=== PATIENT | female | born 1970 | race Caucasian/White ===

== ENCOUNTER → 2018-06-14 13:18 | Outpatient (CLI) | payer OTHER, SELFPAY ==
[2018-06-14 15:48] LABS: Free T3 1.6 pg/mL (2.18-3.98); T4 Free Direct 1.23 ng/dL (0.76-1.46); Thyroid Stim Hormone (TSH) 2.24 uIU/mL (0.358-3.74)
== END ==
PROVIDERS: Visit Provider Family Medicine
DX: E03.9 Hypothyroidism, unspecified (principal)
CPT/HCPCS: 36415; 84439; 84443; 84481

== ENCOUNTER → 2018-06-27 12:58 | Outpatient (CLI) | payer OTHER, SELFPAY ==
--- NOTE | 2018-06-27 13:04 | ECHOD_ITS ---
Reason For Study: Palpitations Procedure This was a 2D Doppler, Color Flow transthoracic echocardiogram. Exam performed in department. Left Ventricle Normal left ventricle. The estimated ejection fraction is 55 %. Normal diastology for age. No regional wall motion abnormalities noted. Right Ventricle Normal RV size. Normal systolic function. Atria Normal left atrium. Normal right atrium. Mitral Valve Normal mitral valve. Tricuspid Valve Normal tricuspid valve. Aortic Valve Normal aortic valve. Pulmonic Valve Normal pulmonic valve. Great Vessels Normal aortic root. The pulmonary artery is normal size. Normal inferior vena cava. Pericardium/Pleural No pericardial effusion. MMode/2D Measurements & Calculations LVIDd: 4.2 cm IVSd: 0.74 cm LVOT diam: 2.0 cm LVIDs: 2.2 cm LVPWd: 0.75 cm LVOT area: 3.2 cm2 RVDd: 3.4 cm FS: 47.7 % Ao root diam: 3.0 cm LAV(MOD-bp): 42.4 ml LA A4 area: 15.8 cm2 LA dimension: 3.0 cm LAV(MOD-bp) Indexed: 22.7 ml/m2 LAV(MOD-sp2): 45.0 ml LAV(MOD-sp4): 40.3 ml RA A4 area: 12.8 cm2 Time Measurements MV dec time: 0.17 sec Doppler Measurements & Calculations MV E max john: 100.8 cm/sec Lat Peak E' John: 13.9 cm/sec Med Peak E' John: 14.5 cm/sec MV A max john: 75.0 cm/sec E/E' lat: 7.3 E/E' med: 6.9 MV E/A: 1.3 MV V2 max: 119.4 cm/sec MV P1/2t max john: 120.4 cm/sec Ao V2 max: 183.0 cm/sec MV max P.7 mmHg MV P1/2t: 74.8 msec Ao max P.4 mmHg MV V2 mean: 61.2 cm/sec MV dec slope: 471.1 cm/sec2 Ao V2 mean: 105.3 cm/sec MV mean P.8 mmHg MVA(P1/2t): 2.9 cm2 Ao mean P.7 mmHg MV V2 VTI: 28.0 cm Ao V2 VTI: 33.6 cm MVA(VTI): 3.5 cm2 STEPHY(I,D): 2.9 cm2 STEPHY(V,D): 2.6 cm2 LV V1 max: 147.9 cm/sec SV(LVOT): 98.5 ml PA V2 max: 107.9 cm/sec LV V1 max P.7 mmHg LV V1 mean P.8 mmHg LV V1 mean: 88.1 cm/sec LV V1 VTI: 31.2 cm Interpretation Summary Normal left ventricle. The estimated ejection fraction is 55 %. Normal diastology for age. Structurally normal valves. Ordering Physician: Nitza Levy Referring Physician: Nitza Levy Performed By: Ned Ashby RCS
== END ==
PROVIDERS: Family Provider Family Medicine; PCP Family Medicine; Visit Provider Family Medicine
DX: I37.0 Nonrheumatic pulmonary valve stenosis (principal)
CPT/HCPCS: 93306

== ENCOUNTER 2018-07-21 07:52 | Day surgery (SDC) | payer OTHER, SELFPAY ==
[2018-07-21 08:06] VITALS: BP 121/101; PULSE 84; RESP 16; O2SAT 98
== END 2018-07-21 08:25 | disposition home or self-care (01) ==
LOC: EN 07:52
PROVIDERS: Family Provider Family Medicine; PCP Family Medicine; Referring Provider Surgery; Visit Provider Surgery
PROC: F00ZJWZ Instrumental Swallowing and Oral Function Assessment using Swallowing Equipment (ICD-10-PCS; CPT 43235; principal; 2018-07-21 07:55)
DX: Z53.9 Procedure and treatment not carried out, unspecified reason (principal)

== ENCOUNTER → 2018-09-30 11:31 | Outpatient (CLI) | payer OTHER, SELFPAY ==
[2018-06-27 08:59] VITALS: BMI 27.4
[2018-10-06 14:18] LABS: HPV Reflexed? NOT INDICATED
== END ==
PROVIDERS: Family Provider Family Medicine; PCP Family Medicine; Referring Provider Obstetrics & Gynecology; Visit Provider Obstetrics & Gynecology
DX: Z12.4 Encounter for screening for malignant neoplasm of cervix (principal)
CPT/HCPCS: 88175; G0145

== ENCOUNTER → 2018-10-06 10:05 | Outpatient (CLI) | payer OTHER, SELFPAY ==
[2018-06-27 08:59] VITALS: BMI 27.4
[2018-10-06 11:19] LABS: Hemoglobin A1c 5.1 % (4.2-6.3)
[2018-10-06 11:21] LABS: Estradiol < 11.0 pg/mL; Follicle Stimulating Hormone 76.4 mIU/mL; T4 Free Direct 1.07 ng/dL (0.76-1.46); T4 Total, Thyroxin 8.5 ug/dL (4.8-13.9); Thyroid Stim Hormone (TSH) 2.62 uIU/mL (0.358-3.74)
[2018-10-06 12:11] LABS: Progesterone Level 0.14 ng/mL (See Comment)
[2018-10-07 11:03] LABS: DHEA Sulfate 46.2 ug/dL (41.2-243.7)
== END ==
PROVIDERS: Family Provider Family Medicine; PCP Family Medicine; Referring Provider Obstetrics & Gynecology; Visit Provider Obstetrics & Gynecology
DX: Z78.0 Asymptomatic menopausal state (principal)
CPT/HCPCS: 36415; 82533; 82627; 82670; 83001; 83036; 84144; 84403; 84436; 84439; 84443; 82626

== ENCOUNTER → 2018-11-21 07:26 | Outpatient (CLI) | payer OTHER, SELFPAY ==
--- NOTE | 2018-11-21 07:29 | BI_ITS ---
MAMMOGRAPHY - BILATERAL SCREENING REASON FOR EXAM: Female, 48 years old. Routine annual screening examination. PERTINENT HISTORY: Mother with breast cancer. TECHNIQUE: Digital bilateral breast rubén (3D mammographic acquisition) in the CC and MLO projections. 2-D mediolateral oblique (MLO) and craniocaudad (CC) views of both breasts were obtained. CAD: Full Field Digital Mammography with Computer Added Detection was performed. COMPARISON: Comparison is made with prior outside examination dated June 01, 2017. FINDINGS: Breast Composition: The breasts are heterogeneously dense, which may obscure small masses. There are no dominant masses or suspicious calcifications. No other significant abnormalities are identified. There has been no significant change since the prior study. BI/SCREENING MAMM (CAD), BILAT IMPRESSION: Stable bilateral screening mammogram. Yearly follow-up mammogram recommended. (A) ASSESSMENT CATEGORY: BIRADS Category 1: Negative. A letter regarding these results will be sent to the patient by the facility within 30 days. Approximately 10% of breast cancers are not detected by mammography. A normal mammogram should not delay biopsy of a clinically suspicious abnormality. [id number] Electronically Signed: Ok Stevenson MD at 10:44 EST , Service support ,
== END ==
PROVIDERS: Family Provider Family Medicine; PCP Family Medicine; Referring Provider Obstetrics & Gynecology; Visit Provider Obstetrics & Gynecology
DX: Z12.31 Encounter for screening mammogram for malignant neoplasm of breast (principal)
CPT/HCPCS: 77063; 77067

== ENCOUNTER → 2018-12-07 09:31 | Outpatient (CLI) | payer OTHER, SELFPAY ==
--- NOTE | 2018-12-07 09:37 | MRI_ITS ---
STUDY: BILATERAL BREAST MR WITHOUT AND WITH CONTRAST REASON FOR EXAM: Female, 48 years old. Family history of breast cancer in mother. Patient is currently taking progesterone. However, referring physician did not want to delay imaging. Dense breasts. TECHNIQUE: Multi-sequence multi-echo imaging of both breasts was performed with a dedicated breast coil. T1-weighted and T2-weighted images were performed before the administration of contrast. T1-weighted images were also performed after the administration of 7 cc of Gadavist intravenously without complications. COMPARISON: Mammograms dated November 21, 2018 and December 30, 2016. FINDINGS: RIGHT BREAST: The breast tissue is heterogeneously dense with minimal background enhancement. There are no abnormal enhancing masses or areas of non-mass enhancement in the right breast. LEFT BREAST: The breast tissue is heterogeneously dense with minimal background enhancement. There are no abnormal enhancing masses or areas of non-mass enhancement in the left breast. There are no enlarged or abnormal lymph nodes. There is no abnormality in the visualized regions of the chest or liver. MRI/Breast Bilateral W/O and W IMPRESSION: No abnormality on the breast MRI with contrast. Yearly screening mammograms recommended. CATEGORY: BIRADS Category 2: Benign. A letter regarding these results will be sent to the patient by the facility within 30 days. Electronically Signed: Michael Tee MD at 13:55 EST , Service support ,
== END ==
PROVIDERS: Family Provider Family Medicine; PCP Family Medicine; Referring Provider Obstetrics & Gynecology; Visit Provider Obstetrics & Gynecology
DX: R92.8 Other abnormal and inconclusive findings on diagnostic imaging of breast (principal); R92.2 Inconclusive mammogram; Z80.3 Family history of malignant neoplasm of breast
CPT/HCPCS: 77049; A9585; A4216; C8908

== ENCOUNTER → 2019-02-10 13:52 | Outpatient (CLI) | payer OTHER, SELFPAY ==
[2018-06-27 08:59] VITALS: BMI 27.4
[2019-02-10 16:12] LABS: Estradiol 12.7 pg/mL
[2019-02-10 16:17] LABS: Progesterone Level 3.91 ng/mL (See Comment)
== END ==
PROVIDERS: Visit Provider Obstetrics & Gynecology
DX: Z78.0 Asymptomatic menopausal state (principal)
CPT/HCPCS: 36415; 82670; 84144

== ENCOUNTER → 2019-11-17 11:49 | Outpatient (CLI) | payer OTHER, SELFPAY ==
[2019-11-17 15:56] LABS: Absolute Lymphocyte Count 1.65 X10^3/uL (0.83-4.51); Absolute Neutrophil Count 4.9 X10^3/uL (2.0-7.7); Basophil# 0.05 X10^3/uL; Basophil% 0.7 % (0-1); Eosinophil# 0.17 X10^3/uL; Eosinophils% 2.3 % (0-5); Hematocrit 43.6 % (37-47); Hemoglobin 13.9 g/dL (12.0-15.0); Lymphocyte # 1.65 X10^3/ul (4.0); Lymphocyte % 22.2 % (19-41); Mean Corp Hgb Conc 31.9 g/dL (32-36); Mean Corpuscular Hgb 30.2 pg (27.0-32.0); Mean Corpuscular Volume 94.8 fL (81-99); Mean Platelet Vol. 9.6 fl (6.2-12.0); Monocyte# 0.63 X10^3/uL; Monocyte% 8.5 % (0-10); NRBC Flagged by Analyzer 0 % (0-5); Neutrophil # 4.91 X10^3/uL (2.7-7.7); Platelet Count 388 K/mm3 (150-450); RBC Distribution Width CV 13.4 % (11.6-14.6); White Blood Count 7.4 K/mm3 (4.4-11.0)
[2019-11-17 16:15] LABS: T4 Free Direct 1.06 ng/dL (0.76-1.46); Thyroid Stim Hormone (TSH) 1.75 uIU/mL (0.358-3.74)
== END ==
PROVIDERS: PCP Family Medicine; Visit Provider Family Medicine
DX: E03.9 Hypothyroidism, unspecified (principal); R00.2 Palpitations
CPT/HCPCS: 36415; 84439; 84443; 85025

== ENCOUNTER → 2019-11-30 08:48 | Outpatient (CLI) | payer OTHER, SELFPAY | PROVIDERS: PCP Family Medicine; Referring Provider Family Medicine; Visit Provider Family Medicine | DX: R00.2 Palpitations (principal) | CPT/HCPCS: 93225; 93226 ==

== ENCOUNTER → 2020-09-23 07:21 | Outpatient (CLI) | payer OTHER, SELFPAY ==
--- NOTE | 2020-09-23 07:22 | BI_ITS ---
MAMMOGRAPHY - BILATERAL SCREENING REASON FOR EXAM: Female, 50 years old. Routine annual screening examination. PERTINENT HISTORY: Mother with breast cancer. TECHNIQUE: Digital bilateral breast gab (3D mammographic acquisition) in the CC and MLO projections. 2-D mediolateral oblique (MLO) and craniocaudad (CC) views of both breasts were obtained. CAD: Full Field Digital Mammography with Computer Added Detection was performed. COMPARISON: Comparison is made with prior examination dated 11/21/2018 and prior MRI examination dated 07/07/2019. FINDINGS: Breast Composition: The breasts are heterogeneously dense, which may obscure small masses. There are no dominant masses or suspicious calcifications. No other significant abnormalities are identified. There has been no significant change since the prior study. BI/SCREEN MAMM (CAD) W/GAB BILAT IMPRESSION: Stable bilateral screening mammogram. Yearly follow-up mammogram recommended. (A) ASSESSMENT CATEGORY: BIRADS Category 1: Negative. A letter regarding these results will be sent to the patient by the facility within 30 days. Approximately 10% of breast cancers are not detected by mammography. A normal mammogram should not delay biopsy of a clinically suspicious abnormality. [id number] Electronically Signed: Ok Stevenson, at 10:11 EST , Service support ,
== END ==
PROVIDERS: PCP Family Medicine; Referring Provider Student in an Organized Health Care Education/Training Program; Visit Provider Student in an Organized Health Care Education/Training Program
DX: Z12.31 Encounter for screening mammogram for malignant neoplasm of breast (principal)
CPT/HCPCS: 77063; 77067

== ENCOUNTER → 2021-03-19 07:18 | Outpatient (CLI) | payer BC, SELFPAY ==
[2018-06-27 08:59] VITALS: BMI 27.4
[2021-03-19 08:09] LABS: Absolute Lymphocyte Count 1.83 X10^3/uL (0.83-4.51); Absolute Neutrophil Count 3.7 X10^3/uL (2.0-7.7); Basophil# 0.03 X10^3/uL; Basophil% 0.5 % (0-1); Eosinophil# 0.18 X10^3/uL; Eosinophils% 2.9 % (0-5); Hematocrit 40.4 % (37-47); Hemoglobin 13.3 g/dL (12.0-15.0); Lymphocyte # 1.83 X10^3/ul (0.83-4.51); Mean Corp Hgb Conc 32.9 g/dL (32-36); Mean Corpuscular Hgb 30.6 pg (27.0-32.0); Mean Corpuscular Volume 92.9 fL (81-99); Mean Platelet Vol. 9.3 fl (6.2-12.0); Monocyte# 0.51 X10^3/uL; Monocyte% 8.1 % (0-10); NRBC Flagged by Analyzer 0 % (0-5); Neutrophil # 3.73 X10^3/uL (2.7-7.7); Neutrophil % 59.2 % (47-70); Platelet Count 353 K/mm3 (150-450); RBC Distribution Width CV 13.6 % (11.6-14.6); RBC Distribution Width SD 46.4 fl (35.1-43.9); Red Blood Count 4.35 M/mm3 (4.2-5.4); White Blood Count 6.3 K/mm3 (4.4-11.0)
[2021-03-19 08:38] LABS: Anion Gap 5 (5-15); BUN 13 mg/dL (7-18); BUN/Creat Ratio 12.5 RATIO (10-20); Chloride 106 mmol/L (98-107); Cholesterol 273 mg/dL (200); Creatinine, Serum 1.04 mg/dL (0.55-1.02); EST Glomerular Filtration Rate 59 mL/min (>60); Est Glom Filt Rate - Afr Amer 72 mL/min (>60); Glucose 90 mg/dL (74-106); High Density Lipoprotein 56 mg/dL; Potassium 3.9 mmol/L (3.5-5.1); Sodium Level 140 mmol/L (136-145); T4 Free Direct 1.43 ng/dL (0.76-1.46); Thyroid Stim Hormone (TSH) 1.86 uIU/mL (0.358-3.74); Triglycerides 124 mg/dL; Very Low Density Lipoprotein 25 mg/dL (5-40)
== END ==
PROVIDERS: PCP Family Medicine; Referring Provider Family Medicine; Visit Provider Family Medicine
DX: Z00.00 Encounter for general adult medical examination without abnormal findings (principal); U07.1 COVID-19; E03.9 Hypothyroidism, unspecified; K21.9 Gastro-esophageal reflux disease without esophagitis
CPT/HCPCS: 36415; 80048; 80061; 84439; 84443; 85025; 86769

== ENCOUNTER → 2022-02-03 | Outpatient (CLI) | payer BC, SELFPAY ==
[2022-02-10 15:30] LABS: HPV APTIMA, High Risk Negative (Negative)
== END | disposition home or self-care (01) ==
LOC: LABSPEC 16:14
PROVIDERS: PCP Family Medicine; Visit Provider Student in an Organized Health Care Education/Training Program
DX: Z12.4 Encounter for screening for malignant neoplasm of cervix (principal)
CPT/HCPCS: 87624; 88175; G0145

== ENCOUNTER → 2022-02-16 | Outpatient (CLI) | payer BC, SELFPAY ==
--- NOTE | 2022-02-16 07:16 | BI_ITS ---
MAMMOGRAPHY - BILATERAL SCREENING REASON FOR EXAM: Female, 51 years old. Routine annual screening examination. PERTINENT HISTORY: Mother with breast cancer. TECHNIQUE: Digital bilateral breast gab (3D mammographic acquisition) in the CC and MLO projections. 2-D mediolateral oblique (MLO) and craniocaudad (CC) views of both breasts were obtained. CAD: Full Field Digital Mammography with Computer Added Detection was performed. COMPARISON: Comparison is made with prior study dated 09/23/2020 and 11/21/2018. FINDINGS: Breast Composition: The breasts are heterogeneously dense, which may obscure small masses. There are no dominant masses or suspicious calcifications. No other significant abnormalities are identified. There has been no significant change since the prior study. BI/SCRN MAMM (CAD)W/GAB BILAT IMPRESSION: Stable bilateral screening mammogram. Yearly follow-up mammogram recommended. (A) ASSESSMENT CATEGORY: BIRADS Category 1: Negative. A letter regarding these results will be sent to the patient by the facility within 30 days. Approximately 10% of breast cancers are not detected by mammography. A normal mammogram should not delay biopsy of a clinically suspicious abnormality. [id number] Electronically Signed: Ok Stevenson MD at 8:38 EDT ,
== END | disposition home or self-care (01) ==
LOC: OPBI 07:14
PROVIDERS: PCP Family Medicine; Referring Provider Student in an Organized Health Care Education/Training Program; Visit Provider Student in an Organized Health Care Education/Training Program
DX: Z12.31 Encounter for screening mammogram for malignant neoplasm of breast (principal); Z80.3 Family history of malignant neoplasm of breast
CPT/HCPCS: 77063; 77067

== ENCOUNTER → 2022-08-31 | Outpatient (CLI) | payer BC, SELFPAY ==
[2022-08-31 08:47] LABS: Absolute Lymphocyte Count 1.68 X10^3/uL (0.83-4.51); Absolute Neutrophil Count 3.5 X10^3/uL (2.0-7.7); Basophil# 0.03 X10^3/uL; Basophil% 0.5 % (0-1); Eosinophil# 0.16 X10^3/uL; Eosinophils% 2.7 % (0-5); Hemoglobin 13.2 g/dL (12.0-15.0); Lymphocyte # 1.68 X10^3/ul (0.83-4.51); Lymphocyte % 28.4 % (19-41); Mean Corpuscular Hgb 31.1 pg (27.0-32.0); Mean Corpuscular Volume 94.1 fL (81-99); Mean Platelet Vol. 9.6 fl (6.2-12.0); Monocyte# 0.59 X10^3/uL; NRBC Flagged by Analyzer 0 % (0-5); Neutrophil # 3.45 X10^3/uL (2.7-7.7); Neutrophil % 58.2 % (47-70); Platelet Count 389 K/mm3 (150-450); RBC Distribution Width CV 13.5 % (11.6-14.6); RBC Distribution Width SD 46.5 fl (35.1-43.9); Red Blood Count 4.25 M/mm3 (4.2-5.4); White Blood Count 5.9 K/mm3 (4.4-11.0)
[2022-08-31 09:30] LABS: ALB/GLOB Ratio 0.9 RATIO (0.9-2.4); AST(SGOT) 18 U/L (15-37); Alanine Aminotransfer ALT/SGPT 31 U/L (13-56); Albumin, Serum 3.5 g/dL (3.2-5.0); Alkaline Phosphatase 81 U/L (45-117); Anion Gap 6 (5-15); BUN 14 mg/dL (7-18); BUN/Creat Ratio 14.4 RATIO (10-20); Calcium,Total 8.7 mg/dL (8.5-10.1); Chloride 105 mmol/L (98-107); Cholesterol 234 mg/dL (200); Creatinine, Serum 0.97 mg/dL (0.55-1.02); EST Glomerular Filtration Rate 64 mL/min (>60); Est Glom Filt Rate - Afr Amer 77 mL/min (>60); Globulin 3.8 g/dL (2.2-4.2); Glucose 84 mg/dL (74-106); High Density Lipoprotein 42 mg/dL; Potassium 4.3 mmol/L (3.5-5.1); Protein, Total 7.3 g/dL (6.4-8.2); Sodium Level 140 mmol/L (136-145); T4 Free Direct 1.63 ng/dL (0.76-1.46); Triglycerides 92 mg/dL; Very Low Density Lipoprotein 18 mg/dL (5-40)
== END | disposition home or self-care (01) ==
LOC: LAB 07:29
PROVIDERS: PCP Family Medicine; Referring Provider Family Medicine; Visit Provider Family Medicine
DX: Z00.00 Encounter for general adult medical examination without abnormal findings (principal); E03.9 Hypothyroidism, unspecified; K21.9 Gastro-esophageal reflux disease without esophagitis; E78.5 Hyperlipidemia, unspecified
CPT/HCPCS: 36415; 80053; 80061; 84439; 84443; 85025

== ENCOUNTER → 2022-09-18 | Outpatient (CLI) | payer BC, SELFPAY ==
--- NOTE | 2022-09-18 07:26 | RAD_ITS ---
STUDY: X-RAY - ESOPHAGUS (BARIUM SWALLOW) WITH FLUOROSCOPY REASON FOR EXAM: Female, 52 years old. GERD TECHNIQUE: 19 view(s) of the esophagus were obtained following swallowing of barium. FLUOROSCOPY TIME (if supplied): (40 seconds) minutes/seconds COMPARISON: Comparison is made with prior study 05/03/2017. FINDINGS: There is no demonstrated esophageal foreign body. There is no demonstrated stricture or mucosal abnormality. Normal gastroesophageal junction, without a demonstrated hiatal hernia. The patient ingested a 12 mm tablet of barium without any difficulty. Normal visualized aortic arch and descending thoracic aorta. Normal visualized pulmonary parenchyma. Normal visualized osseous structures of the thorax. RAD/Esophagus Single Contrast IMPRESSION: Normal plain film x-ray examination (barium swallow) of the esophagus. Electronically Signed: Ok Stevenson MD at 13:06 [facility] ,
[2022-09-23 14:08] LABS: Beef <0.10 kU/L (Class 0); Chicken <0.10 kU/L (Class 0); Clam <0.10 kU/L (Class 0); Codfish <0.10 kU/L (Class 0); Corn 0.12 kU/L (Class 0/I); Egg, White 0.71 kU/L (Class II); Egg, Yolk 0.26 kU/L (Class 0/I); Gluten <0.10 kU/L (Class 0); Milk (Cow) <0.10 kU/L (Class 0); Peanut <0.10 kU/L (Class 0); SCALLOP <0.10 kU/L (Class 0); SESAME SEED <0.10 kU/L (Class 0); Shrimp <0.10 kU/L (Class 0); Soybean <0.10 kU/L (Class 0); Walnut, (Food) <0.10 kU/L (Class 0); Wheat 0.12 kU/L (Class 0/I)
[2022-09-24 10:31] LABS: Banana 0.11 kU/L (Class 0/I)
== END | disposition home or self-care (01) ==
LOC: RAD 07:19
PROVIDERS: PCP Family Medicine; Visit Provider Otolaryngology
DX: K21.00 Gastro-esophageal reflux disease with esophagitis, without bleeding (principal); T78.40XA Allergy, unspecified, initial encounter
CPT/HCPCS: 36415; 74220; 86003

== ENCOUNTER → 2023-12-08 | Outpatient (CLI) | payer BC, SELFPAY ==
--- OUTSIDE RECORDS SUMMARY | 2023-12-08 07:09 | XMS RPT_ITS | CCD ---
Author Name Unknown Address [address] [place] [address] Organization [facility] Care Team Providers Care Senior Behavioral Scientist Name Role Phone FAVIOLA KNUTSON Unavailable Unavailable PHYSICIAN, NONE Unavailable Unavailable FAVIOLA KNUTSON Unavailable Unavailable PHYSICIAN, NONE Unavailable Unavailable FAVOILA KNUTSON Unavailable Unavailable PHYSICIAN, NONE Unavailable Unavailable BEN FERNANDES Primary Care Unavailable BEATA ALVAREZ Attending Unavailable Allergies Allergy Classification Reported Allergen(s) Allergy Type Date of Onset Reaction(s) Facility (1 source) Latex; Translations: [LATEX] Propensity to adverse reactions to drug (disorder) 9 [facility] Repository (1 source) AMOXICILLIN-POT CLAVULANATE; Translations: [AMOXICILLIN-POT CLAVULANATE] Propensity to adverse reactions to drug (disorder) 9 [facility] Repository Problems Problem Classification Problem Date Documented Da te Episodic/Chronic Open wounds of extremities (1 source) Unspecified open wound of right thumb without damage to nail, initial encounter; Translations: [Avulsion of skin of right thumb, initial encounter] Onset: 05-08-2023 Episodic Results Test Name Value Interpretation Reference Range Facil ity Encounters Encounter Date Encounter Type Care Provider Facility Start: 05-08-2023 End: 05-08-2023 Emergency department patient visit BEN FERNANDES Facility:[facility] Start: 01-14-2018 End: 01-15-2018 Ambulatory FAVIOLA KNUTSON Facility:[facility] Start: 09-20-2017 End: 09-21-2017 Ambulatory FAVIOLA KNUTSON Facility:[facility] Start: 2017 End: 06-17-2017 Ambulatory FAVIOLA KNUTSON Facility:[facility] Payers Date Payer Category Payer Unknown [id number] 2017 Private Health Insurance [id number] Summary Purpose Family History No Family History Records FoundNo Family History Records Found Advance Directives No Advanced Directives Records FoundNo Advanced Directives Records Found Additional Source Comments INFORMATION SOURCE (unrecogn ized section and content) DATE CREATED AUTHOR AUTHOR'S RENNYBUFFY ATMOMO 05/08/2023 [facility] FOR RECORDS PERTAINING TO PATIENTS WHO ARE OR HAVE BEEN ENROLLED IN A CHEMICAL DEPENDENCY/SUBSTANCEABUSE PROGRAM, SOME INFORMATION MAY BE OMITTED. This clinical summary was aggregated from multiple sources. Caution should be exercised in using it in the provision of clinical care. This summary normalizes information from multiple sources, and as a consequence, information in this document may materially change the coding, format and clinical context of patient data. In addition, data may be omitted in some cases. CLINICAL DECISIONS SHOULD BE BASED ON THE PRIMARY CLINICAL RECORDS. [facility]. provides no warranty or guarantee of the accuracy or completeness of information in this document.
--- NOTE | 2023-12-08 07:10 | BI_ITS ---
MAMMOGRAPHY - BILATERAL SCREENING REASON FOR EXAM: Female, 53 years old. Routine annual screening examination. PERTINENT HISTORY: Mother with breast cancer. TECHNIQUE: Digital bilateral breast gab (3D mammographic acquisition) in the CC and MLO projections. 2-D mediolateral oblique (MLO) and craniocaudad (CC) views of both breasts were obtained. CAD: Full Field Digital Mammography with Computer Added Detection was performed. COMPARISON: Comparison is made with prior study dated February 16, 2022. FINDINGS: Breast Composition: The breasts are heterogeneously dense, which may obscure small masses. There are no dominant masses or suspicious calcifications. No other significant abnormalities are identified. There has been no significant change since the prior study. BI/SCRN MAMM (CAD)W/GAB BILAT IMPRESSION: Stable bilateral screening mammogram. Yearly follow-up mammogram recommended. (A) ASSESSMENT CATEGORY: BIRADS Category 1: Negative. A letter regarding these results will be sent to the patient by the facility within 30 days. Approximately 10% of breast cancers are not detected by mammography. A normal mammogram should not delay biopsy of a clinically suspicious abnormality. [id number] Electronically Signed: Ok Stevenson MD at 12:12 EST ,
== END | disposition home or self-care (01) ==
LOC: OPBI 07:06
PROVIDERS: PCP Family Medicine; Referring Provider Family Medicine; Visit Provider Family Medicine
DX: Z12.31 Encounter for screening mammogram for malignant neoplasm of breast (principal); Z85.3 Personal history of malignant neoplasm of breast
CPT/HCPCS: 77063; 77067

== ENCOUNTER 2023-12-30 07:25 | Day surgery (SDC) | payer BC, SELFPAY ==
[2023-12-30] MEDS: Lactated Ringers 1,000 ML 15 ML IV (07:46)
[2023-12-30 07:47] VITALS: BP 107/66; PULSE 82; RESP 18; TEMP 36.6; O2SAT 100; BMI 23.8
--- NOTE | 2023-12-30 08:59 | PCM.HP.STD ---
[facility] - General General Date of Admission: 12/30/23 Date of Service: 12/30/23 Chief Complaint: Screening colonoscopy [facility] Narrative RAE DAS, is a 53 F who presents today for screening colonoscopy. She had a colonoscopy back in 2011 but that was normal. She does not have any problems with her bowels. She does not have any chest pain shortness of breath. She did not have any weaknes, nausea vomiting or diarrhea. Overall she is in very good health. [facility] Medical History Alcohol use Asthma Depression GERD (gastroesophageal reflux disease) Heart murmur History of asthma History of esophageal dilatation History of irregular heartbeat Hypothyroidism Non-smoker Thyroid disease Wears glasses Home Medications levothyroxine 100 mcg tablet (Synthroid) 100 mcg PO DAILY 06/27/18 [History Last Taken 12/30/23] omeprazole 20 mg tablet,delayed release 20 mg PO DAILY #60 tabs 06/27/18 [Rx Last Taken 12/30/23] fluticasone propionate 50 mcg/actuation nasal spray,suspension 2 spray intranasal DAILY PRN allergy symptoms 12/08/23 [History Last Taken Unknown] vitamin C 30 mg-zinc citrate 1.1 mg-elderberry 25 mg chewable tablet (Sambucus Elderberry) 1 tab PO .QD 12/08/23 [History Last Taken Unknown] Allergy/AdvReac Type Severity Reaction Status Date / Time amoxicillin Allergy Mild rash Verified 12/30/23 07:45 latex Allergy Mild rash Verified 12/30/23 07:45 Family History (Updated 06/27/18 @ 08:59 by Macey Collier) Father Hypertension Asthma Mother Breast cancer Surgical History History of colonoscopy (~2011) History of esophagogastroduodenoscopy (EGD) History of nasal septoplasty Social History (Updated 12/08/23 @ 10:53 by Kaylee Tanner) current occupational status: employed Smoking Status: Never smoker substance use type: does not use ROS Review of Systems ROS Unobtainable: other Constitutional Constitutional: Denies fatigue, fever(s), poor appetite, weight gain or weight loss ENT HEENT: Denies mouth lesions Cardiovascular Cardiovascular: Denies abdominal bloating, abdominal edema or abdominal pain Respiratory/Chest Respiratory/Chest: Denies change in mental status, change in phlegm color, chest congestion or chest tightness Gastrointestinal Gastrointestinal: Denies belching, bloating, change in bowel habits, change in stool character, chewing difficulty, coffee ground emesis, constipation, cramping, diarrhea, dyspepsia, dysphagia, early satiety, excessive flatus, fecal incontinence, heartburn, hematemesis, hematochezia, hemorrhoids, loose stools, melena, nausea, odynophagia, rectal bleeding, tenesmus, vomiting or weight changes Genitourinary Genitourinary: Denies abdominal discomfort, burning urination or itching Musculoskeletal Musculoskeletal: Reports as per HPI; Denies muscle weakness or myalgias Integumentary Integumentary: Denies jaundice Neurologic Neurologic: Denies lack of coordination or weakness Psychiatric Psychiatric: Denies confusion, depression, memory loss, mood swings, paranoia or suicidal ideation Endocrine Endocrinology: Denies systems reviewed and no addt'l complaints, except as documented Hematologic/Lymphatic Hematologic/Lymphatic: Denies anemia, easy bleeding, easy bruising or lymphadenopathy Allergic/Immunologic Allergic/Immunologic: Denies systems reviewed and no addt'l complaints, except as documented Vital Signs Vital Signs Vital Signs: 12/30/23 07:47 12/30/23 07:47 Temperature 97.8 F Temperature Source Temporal Pulse Rate 82 Respiratory Rate 18 Respiratory Pattern Normal Blood Pressure 107/66 Blood Pressure Mean 79 Blood Pressure Source Monitor Blood Pressure Position Semi-Fowlers Blood Pressure Location Right Arm Pulse Ox 100 Oxygen Delivery Method Room Air Weight Weight: 148 lb Body Mass Index (BMI) 23.8 Physical Exam Const alert, oriented x3, no apparent distress, healthy appearing and well nourished General Appearance: cooperative, comfortable, well kempt and well developed Orientation / Consciousness: awake and oriented to person HEENT Head and Scalp: normocephalic and atraumatic Face and Sinus: normal facial exam Mouth: oral and palatal mucosa normal Eyes General Eye: normal appearance of both eyes Neck full ROM Lymph Lymphatic: no lymphadenopathy noted Chest inspection of chest normal Resp normal respiratory effort and no use of accessory muscles Cardio regular rate and regular rhythm GI normal to inspection, nondistended, normoactive bowel sounds, soft to palpation, non-tender, non-distended and no masses Auscultation: normoactive bowel sounds Palpation: soft Percussion: normal to percussion Rectal Exam: visual inspection normal and normal sphincter tone no CVA tenderness Back/Spine no CVA tenderness and normal ROM Extremity normal to inspection Peripheral Pulses: Yes pulses 2+ throughout Skin no rashes or lesions noted General Skin Exam: no breakdown, elasticity normal and turgor normal Neuro oriented x3 Motor Exam: strength 5/5 throughout Psych mental status grossly normal Appearance: grossly normal Attitude: calm Activity / Motor Behavior: appropriate eye contact Speech: normal speech Thought Process: normal thought process Thought Content: normal thought content Attention / Concentration: attention grossly intact Memory / Cognition: memory grossly intact Insight: insight good Judgement: judgement good Assessment & Plan Assessment/Plan (1) Encounter for screening for malignant neoplasm of colon: PLAN: 53-year-old comes in for screening colonoscopy. She was explained alternatives, risk, benefits including not withstanding bleeding, infection, sepsis, perforation, need for emergent surgery and . She will have an ASA of 2.
[2023-12-30 09:23] VITALS: BP 107/66; BP 94/51; PULSE 62; RESP 16; TEMP 36.6; O2SAT 98
--- NOTE | 2023-12-30 09:23 | OP.COLON_ITS ---
Patient Name: Clarita Monsivais Procedure Date: 12/30/2023 8:55 AM Date of : 1970 Age: 53 Procedure: Colonoscopy Indications: Screening for colorectal malignant neoplasm Providers: Jose D Mackey DO Medicines: Monitored Anesthesia Care Patient Profile: This is a 53 year old female. Refer to note in patient chart for documentation of history and physical. Last Colonoscopy: more than 10 years ago. Complications: No immediate complications. Procedure: Pre-Anesthesia Assessment: - Prior to the procedure, a History and Physical was performed, and patient medications and allergies were reviewed. The patient is competent. The risks and benefits of the procedure and the sedation options and risks were discussed with the patient. All questions were answered and informed consent was obtained. Patient identification and proposed procedure were verified by the physician in the pre-procedure area. Mental Status Examination: alert and oriented. Airway Examination: normal oropharyngeal airway and neck mobility. Respiratory Examination: clear to auscultation. CV Examination: normal. Prophylactic Antibiotics: The patient does not require prophylactic antibiotics. Prior Anticoagulants: The patient has taken no anticoagulant or antiplatelet agents. ASA Grade Assessment: II - A patient with mild systemic disease. After reviewing the risks and benefits, the patient was deemed in satisfactory condition to undergo the procedure. The anesthesia plan was to use monitored anesthesia care (MAC). Immediately prior to administration of medications, the patient was re-assessed for adequacy to receive sedatives. The heart rate, respiratory rate, oxygen saturations, blood pressure, adequacy of pulmonary ventilation, and response to care were monitored throughout the procedure. The physical status of the patient was re-assessed after the procedure. After I obtained informed consent, the scope was passed under direct vision. Throughout the procedure, the patient's blood pressure, pulse, and oxygen saturations were monitored continuously. The colonoscope was introduced through the anus and advanced to the cecum, identified by appendiceal orifice and ileocecal valve. The colonoscopy was performed without difficulty. The patient tolerated the procedure well. The quality of the bowel preparation was good. The ileocecal valve, appendiceal orifice, and rectum were photographed. Scope In: 9:07:21 AM Scope Withdrawal Time 0 hours 7 minutes 9 seconds Scope Out: 9:18:31 AM Total Procedure Duration Time 0 hours 11 minutes 10 seconds Findings: The perianal and digital rectal examinations were normal. The entire examined colon appeared normal. Impression: - The entire examined colon is normal. - No specimens collected. Recommendation: - Discharge patient to home. - Resume previous diet. - Continue present medications. - Repeat colonoscopy in 10 years for screening purposes. Procedure Code(s): --- Professional --- G0121, Colorectal cancer screening; colonoscopy on individual not meeting criteria for high risk CPT copyright 2021 [employer]. All rights reserved. The codes documented in this report are preliminary and upon paralegal assistant review may be revised to meet current compliance requirements. Jose D Mackey DO 12/30/2023 9:23:26 AM This report has been signed electronically. Number of Addenda: 0 Note Initiated On: 12/30/2023 8:55 AM
--- NOTE | 2023-12-30 09:23 | OP.CCLET_ITS ---
12/30/2023 Nitza Levy [place] [id number] [address] Re : Colonoscopy procedure for Clarita Yodit Dear Dr. Levy This procedure was performed on December. My impressions and recommendations are as follows: Impressions : - The entire examined colon is normal. - No specimens collected. Recommendations : - Discharge patient to home. - Resume previous diet. - Continue present medications. - Repeat colonoscopy in 10 years for screening purposes. My findings are described in the full procedure note, which is enclosed. If I can be of further assistance, please feel free to contact me at . Sincerely, Jose D Friend, 12/30/2023 9:23:26 AM This report has been signed electronically.
[2023-12-30 09:25] VITALS: BP 107/66; BP 96/64; PULSE 59; RESP 16; O2SAT 98
[2023-12-30 09:30] VITALS: BP 107/66; BP 93/52; PULSE 60; RESP 16; O2SAT 99
[2023-12-30 09:33] VITALS: BP 107/66; BP 95/59; PULSE 58; RESP 16; TEMP 36.2; O2SAT 99
[2023-12-30 09:58] VITALS: BP 107/66
== END 2023-12-30 10:10 | disposition home or self-care (01) ==
LOC: EN 07:26 → AC 07:27
PROVIDERS: PCP Family Medicine; Referring Provider Family Medicine; Visit Provider Internal Medicine Gastroenterology
PROC: 0DJD8ZZ Inspection of Lower Intestinal Tract, Via Natural or Artificial Opening Endoscopic (ICD-10-PCS; CPT 45378; principal; 2023-12-30 08:25)
DX: Z12.11 Encounter for screening for malignant neoplasm of colon (principal); J45.909 Unspecified asthma, uncomplicated; K21.9 Gastro-esophageal reflux disease without esophagitis; E03.9 Hypothyroidism, unspecified; Z79.890 Hormone replacement therapy; Z79.899 Other long term (current) drug therapy
CPT/HCPCS: 45378; J7120; J2405

== ENCOUNTER → 2024-01-03 | Outpatient (CLI) | payer BC, SELFPAY ==
[2024-01-03 08:32] LABS: Absolute Lymphocyte Count 1.95 X10^3/uL (0.83-4.51); Absolute Neutrophil Count 3.8 X10^3/uL (2.0-7.7); Basophil# 0.04 X10^3/uL; Basophil% 0.6 % (0-1); Eosinophil# 0.15 X10^3/uL; Eosinophils% 2.3 % (0-5); Hemoglobin 13.2 g/dL (12.0-15.0); Lymphocyte # 1.95 X10^3/ul (0.83-4.51); Lymphocyte % 29.9 % (19-41); Mean Corp Hgb Conc 32.2 g/dL (32-36); Mean Corpuscular Hgb 30.3 pg (27.0-32.0); Mean Corpuscular Volume 94.3 fL (81-99); Mean Platelet Vol. 9.4 fl (6.2-12.0); Monocyte# 0.57 X10^3/uL; Monocyte% 8.7 % (0-10); NRBC Flagged by Analyzer 0 % (0-5); Neutrophil % 58.3 % (47-70); Platelet Count 337 K/mm3 (150-450); RBC Distribution Width CV 13.4 % (11.6-14.6); RBC Distribution Width SD 46.7 fl (35.1-43.9); Red Blood Count 4.35 M/mm3 (4.2-5.4); White Blood Count 6.5 K/mm3 (4.4-11.0)
[2024-01-03 09:32] LABS: ALB/GLOB Ratio 1.1 RATIO (0.9-2.4); AST(SGOT) 17 U/L (15-37); Alanine Aminotransfer ALT/SGPT 20 U/L (13-56); Albumin, Serum 3.7 g/dL (3.2-5.0); Alkaline Phosphatase 78 U/L (45-117); Anion Gap 4 (5-15); BUN 21 mg/dL (7-18); BUN/Creat Ratio 22.9 RATIO (10-20); Chloride 108 mmol/L (98-107); Cholesterol 264 mg/dL (200); Creatinine, Serum 0.92 mg/dL (0.55-1.02); EST Glomerular Filtration Rate 68 mL/min (>60); Est Glom Filt Rate - Afr Amer 82 mL/min (>60); Globulin 3.5 g/dL (2.2-4.2); Glucose 83 mg/dL (74-106); High Density Lipoprotein 50 mg/dL; Potassium 4.4 mmol/L (3.5-5.1); Protein, Total 7.2 g/dL (6.4-8.2); Sodium Level 141 mmol/L (136-145); T4 Free Direct 1.26 ng/dL (0.76-1.46); Thyroid Stim Hormone (TSH) 1.69 uIU/mL (0.358-3.74); Triglycerides 82 mg/dL; Very Low Density Lipoprotein 16 mg/dL (5-40)
== END | disposition home or self-care (01) ==
LOC: LAB 07:18
PROVIDERS: PCP Family Medicine; Visit Provider Family Medicine
DX: Z00.00 Encounter for general adult medical examination without abnormal findings (principal); E03.9 Hypothyroidism, unspecified; K21.9 Gastro-esophageal reflux disease without esophagitis; E78.5 Hyperlipidemia, unspecified
CPT/HCPCS: 36415; 80053; 80061; 84439; 84443; 85025

== ENCOUNTER → 2024-12-12 | Outpatient (CLI) | payer BC, SELFPAY ==
--- NOTE | 2024-12-12 07:15 | BI_ITS ---
PROCEDURE: SCRN MAMM (CAD)W/GAB BILAT REASON FOR EXAM: F, Age 54 y/o, presents for annual screening mammogram. Family history of breast cancer in her mother at age 77. TECHNIQUE: Bilateral screening digital breast tomosynthesis with 2D and 3D images. Computer aided detection. COMPARISON: 12/08/2023, 02/16/2022. FINDINGS: There are scattered areas of fibroglandular density. No suspicious masses, areas of developing architectural distortion, or suspicious calcifications. BI/SCRN MAMM (CAD)W/GAB BILAT IMPRESSION: There is no mammographic evidence of malignancy. BI-RADS 1: NEGATIVE. RECOMMEND ANNUAL MAMMOGRAPHIC SCREENING. Follow-up code: Routine Follow-up The patient will be notified of the results by letter. Reading Location: [id number]
== END | disposition home or self-care (01) ==
PROVIDERS: PCP Family Medicine; Referring Provider Advanced Practice Midwife; Visit Provider Advanced Practice Midwife
DX: Z12.31 Encounter for screening mammogram for malignant neoplasm of breast (principal)
CPT/HCPCS: 77063; 77067

== ENCOUNTER → 2025-09-04 | Outpatient (CLI) | payer BC, SELFPAY ==
--- OUTSIDE RECORDS SUMMARY | 2025-09-04 07:34 | XMS RPT_ITS | CCD ---
Author Organization [facility] Care Team Providers Care Director Of Psychiatry Name Role Phone FAVIOLA KNUTSON Unavailable Unavailable PHYSICIAN, NONE Unavailable Unavailable FAVIOLA KNUTSON Unavailable Unavailable PHYSICIAN, NONE Unavailable Unavailable FAVIOLA KNUTSON Unavailable Unavailable PHYSICIAN, NONE Unavailable Unavailable NITZA LEVY Primary Care Unavailable RISHABH LILLY Attending Unavailable Dr. Nitza Levy Primary Care Provider Kaylee Tanner Attending Provider Unavailable Dr. Nitza Levy Primary Care Provider Kaylee Tanner Attending Provider Unavailable Dr. Nitza Levy Referring Provider [phone] Friend[facility] Jeffery Attending Provider FriendDr. Jeffery Other Provider Dr. Nitza Levy MD Primary Care Provider Mitra Guan CNM Attending Provider [phone] Mitra Guan CNM Referring Provider [phone] Nitza Levy Primary Care Unavailable Nitza Levy Referring Unavailable Mitra Guan Attending Unavailable Mitra Guan Attending Unavailable Mitra Guan Referring Unavailable Nitza Levy Primary Care Unavailable ADÁN CABELLO Attending Unavailable ADÁN CABELLO Referring Unavailable NITZA LEVY Primary Care Unavailable Nitza Levy MD Primary Care Provider [phone] Allergies Allergy Classification Reported Allergen(s) Allergy Type Date of Onset Reaction(s) Facility (7 sources) Amoxicillin Drug Allergy 8 [facility] (8 sources) Latex; Translations: [LATEX] Allergy to substance 9 rash [facility] Repository (1 source) AMOXICILLIN-POT CLAVULANATE; Translations: [AMOXICILLIN-POT CLAVULANATE] Propensity to adverse reactions to drug (disorder) 9 [facility] Repository (1 source) Amoxicillin Drug Allergy 5 [facility] Rep[facility] (1 source) Latex Drug allergy (disorder) 5 [facility] Rep[facility] Medications Current Medications Medication Drug Class(es) Dates Sig (Normalized) Sig (Original) dihydroxyaluminum sod carb 334 mg chewable tablet (6 sources) Start: 06-27-2018 dihydroxyaluminum sod carb 334 mg chewable tablet Active MG PO June 27, 2018 9:01am Start: 06-27-2018 End: 12-08-2023 dihydroxyaluminum sod carb 3 34 mg chewable tablet Discontinued MG PO June 27, 2018 12:00am December 08, 2023 11:53am Start: 06-27-2018 End: 12-08-2023 dihydroxyaluminum sod carb 3 34 mg chewable tablet Discontinued MG PO June 26, 2018 11:00pm December 08, 2023 10:53am Start: 06-27-2018 dihydroxyalumi num sod carb 334 mg chewable tablet Active MG PO June 26, 2018 11:00pm levothyroxine sodium 0.1 mg oral tablet (7 sources) l-Thyroxine Start: 06-27-2018 take 1 tablet by mouth once daily Levothyroxine (Synthroid) 100 mcg tablet Active 100 ug PO DAILY June 27, 2018 12:00am loratadine 10 mg oral tablet (1 source) Start: 01-20-2024 take 1 tablet by mouth once daily Loratadine (Claritin) 10 mg tablet Active 10 mg PO DAILY January 20, 2024 12:00am omeprazole 20 mg delayed release oral tablet (7 sources) Proton Pump Inhibitor Start: 06-27-2018 take 1 tablet by mouth once daily Omeprazole 20 mg tablet,delayed release (DR/EC) Active 20 mg PO DAILY 60 June 27, 2018 12:00am Vit A-Vit C-P4-Wjdg-Herbal 331 (Talenz) 900 mcg-90 mg- 20 mcg-5.5 mg capsule (1 source) Start: 01-20-2024 Vit A-Vit H-L4-Evmz-Herbal 331 (Talenz) 900 mcg-90 mg- 20 mcg-5.5 mg capsule Active NMA PO January 20, 2024 12:00am Completed/Discontinued Medications Medication Drug Class(es) Dates Sig (Normalized) Sig (Original) Dihydroxyaluminum Sodium Carb 334 mg tablet,chewable (1 source) Start: 06-27-2018 End: 12-08-2023 Dihydroxyaluminum Sodium Carb 334 mg tablet,chewable Discontinued mg PO June 27, 2018 12:00am December 08, 2023 11:53am fluticasone propionate 0.05 mg/actuat metered dose nasal spray (11 sources) Corticosteroid Start: 06-27-2018 End: 01-20-2024 Fluticasone Propionate 50 mcg/actuation spray,suspension Discontinued 2 NMA INTRANASAL DAILY as needed for allergy symptoms December 08, 2023 11:53am January 20, 2024 3:16pm Start: 06-27-2018 End: 12-08-2023 Fluticasone Propionate Activ e 2 SPRAY INTRANASAL DAILY December 08, 2023 11:53am Vit C-Zinc Citrate-Elderberr y (Sambucus Elderberry) 30-1.1-25 mg tablet,chewable (4 sources) Start: 12-08-2023 End: 01-20-2024 Vit C-Zinc Citrate-Elderberr y (Sambucus Elderberry) 30-1.1-25 mg tablet,chewable Discontinued 1 {tbl} PO .QD December 08, 2023 1:00am January 20, 2024 3:17pm Start: 12-08-2023 take 1 tablet by tiffanie th once daily Vit C-Zinc Citrate-Elderberry (Sambucus Elderberry) 30-1.1-25 mg tablet,chewable Active 1 TABLET PO .QD December 08, 2023 1:00am Start: 12-08-2023 take 1 tablet by tiffanie th once daily Vit C-Zinc Citrate-Elderberry (Sambucus Elderberry) 30-1.1-25 mg tablet,chewable Active TABLET PO .QD December 08, 2023 12:00am Problems Problem Classification Problem Date Documented Date Episodic/Chronic Esophageal disorders (1 source) Gastroesophageal reflux disease; Translations: [Gastro-esophageal reflux disease without esophagitis] 01-20-2024 Chronic Menopausal disorders (1 source) Postmenopausal atrophic vaginitis; Translations: [Postmenopausal atrophic vaginitis] Onset: 01-25-2025 Chronic Open wounds of extremities (1 source) Unspecified open wound of right thumb without damage to nail, initial encounter; Translations: [Avulsion of skin of right thumb, initial encounter] Onset: 05-08-2023 Episodic Other lower respiratory disease (2 sources) Dyspnea, unspecified; Translations: [Dyspnea, unspecified] Onset: 06-04-2025 Episodic Other lower respiratory disease (2 sources) Dyspnea; Translations: [Dyspnea, unspecified] 06-04-2025 Episodic Other screening for suspected conditions (not mental disorders or infectious disease) (6 sources) Patient encounter status; Translations: [Encounter for screening for malignant neoplasm of colon] Onset: 12-22-2024 12-08-2023 Episodic Thyroid disorders (1 source) Disorder of thyroid gland; Translations: [Disorder of thyroid, unspecified] 01-20-2024 Episodic Comment on above: ON MED Results Test Name Value Interpretation Reference Range Facility XR Chest 2 Viewson 1. No acute findings. Report Dictated on Electronically Signed By: Alvaro Steen MD Electronically Signed Date/Time: 06/04/2025 8:29 PM EDT [facility] [employer] Patient Name: CLARITA ADKINS CH : 1970 Exam Date/Time: 06/04/2025 08:26 Procedure: XR CHEST 2 VIEWS Ordering Provider: CABELLO SAAD Reason For Exam: r06.00 CHEST PA AND LATERAL CLINICAL INDICATION: r06.00 TECHNIQUE: Frontal and lateral chest x-ray. COMPARISON: None. FINDINGS: Cardiac and mediastinal silhouette within normal limits. Lungs are grossly clear. No significant vascular congestion. No significant pleural effusion or apparent pneumothorax. Bony thorax grossly unremarkable. [facility] [employer] Alvaro Steen MD - 06/04/2025 Patient Name: CLARITA DAS : 1970 Exam Date/Time: 06/04/2025 08:26 Procedure: XR CHEST 2 VIEWS Ordering Provider: CABELLO SAAD Reason For Exam: r06.00 CHEST PA AND LATERAL CLINICAL INDICATION: r06.00 TECHNIQUE: Frontal and lateral chest x-ray. COMPARISON: None. FINDINGS: Cardiac and mediastinal silhouette within normal limits. Lungs are grossly clear. No significant vascular congestion. No significant pleural effusion or apparent pneumothorax. Bony thorax grossly unremarkable. IMPRESSION: 1. No acute findings. Report Dictated on Electronically Signed By: Alvaro Steen MD Electronically Signed Date/Time: 06/04/2025 8:29 PM EDT [facility] [employer] Radiology Study observation (narrative) [facility] [employer] XR Chest 2 ViewsOrdered By: Alvaro Steen on 06-04-2025 [facility] [employer] Work Phone: [employer] Office Visit Reporton 01-25-2025 [employer] Office Visit Report [facility] [address], [address] [place] [address] OFFICE VISIT Date of Service: 01/25/25 MR#: [id number] Acct: [id number] Name: CLARITA DAS Rep #: [id number] : 1970 Provider: HALI Cole ams Age/Sex: 54/F Location[place] [facility] [place] Status: Signed Intake Vital Signs 01/20/24 15:11 01/25/25 08:05 Height 5 ft 6 in 5 ft 6 in Weight: 163 lb 2 oz BMI 26.3 BP 113/72 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) Chief Complaint: Annual 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 Required: No Is patient in pain?: No Allergies amoxicillin Allergy (Mild, Verified 01/25/25 08:07) rash latex Allergy (Mild, Verified 01/25/25 08:07) rash Medications ???Medication ???Instructions ???Recorded ???Confirmed ???Type levothyroxine 100 mcg tablet 100 mcg PO DAILY 06/27/18 01/25/25 History (Synthroid) omeprazole 20 mg tablet,delayed 20 mg PO DAILY #60 tabs 06/27/18 0 01/25/25 Rx release loratadine 10 mg tablet (Claritin) 10 mg PO DAILY 01/20/24 01/25/25 History vit A 900 mcg-vit C 90 mg-D3 20 cap PO 01/20/24 01/25/25 History mcg-zinc 5.5 mg-herbal no.331 capsule (Talenz) Is last menstrual period known: No Post menopausal: Yes Patient : No : No PFSH Medical History Wears glasses Alcohol use Thyroid disease Non-smoker Asthma History of irregular heartbeat History of esophageal dilatation Depression Hypothyroidism Heart murmur GERD (gastroesophageal reflux disease) History of asthma Surgical History History of nasal septoplasty History of colonoscopy ( 2011) History of esophagogastroduodenoscopy (EGD) Family History Father No problems noted. Mother Breast cancer Hypertension Social History current occupational status: employed Smoking Status: Never smoker substance use type: does not use caffeine: Yes what type of physical activity do you participate in: walking frequency: 3-4 times per week seatbelt use: always do you feel safe at home: Yes additional social history: Single History 0 Elective abortions Hx Para Spontaneous abortions Hx # Term Pregnancies Ectopic pregnancies Hx # Pregnancies Multiple births # of living children HPI Encounter for routine gynecological examination Details: CLARITA DAS is a 54 year old who presents for annual exam, no concerns. noticing increased pain with speculum exams. discussed estrogen cream and agrees with trying. Last PAP: 02/03/22 History of abnormal PAP: No Last mammogram: 12/12/24 History of abnormal mammogram: No Colon cancer screenin12/30/23 - Normal Other preventative health care screenings: PCP Female Reproductive History Questions: sexually active: No Menopausal Symptoms: No hot flashes, No night sweats, No weight change, No mood changes, No difficulty concentrating, No sleep problems and No change in libido ROS Const Constitutional: Reports system reviewed and no additional complaints, except as documented; Denies night sweats Cardio Card: Reports system reviewed and no additional complaints, except as documented Resp Resp: Reports system reviewed and no additional complaints, except as documented GI GI: Reports system reviewed and no additional complaints, except as documented : Reports system reviewed and no additional complaints, except as documented; Denies difficulty voiding, dysuria, hot flashes or urinary frequency Skin Skin/Breast: Reports system reviewed and no additional complaints, except as documented Neuro Neuro: Reports system reviewed and no additional complaints, except as documented Psych Psych: Reports system reviewed and no additional complaints, except as documented; Denies anhedonia, anxiety, change in libido, depression or difficulty concentrating Exam Const General: cooperative, healthy appearing, comfortable and no acute distress Orientation: alert, awake and oriented x3 Neck Neck: normal visual inspection and full ROM Thyroid: thyroid normal Chest Breast inspection: normal inspection of the breasts and normal inspection of the axillae Breast palpation: normal palpation of the breasts and normal palpation of the axillae Resp Effort Inspection: normal respiratory effort, able to speak in complete sentences and symmetric chest movement GI Inspection: normal to inspection Palpation: soft Rectal Exam: visual inspection normal External Female Exam: normal external appearance and normal appearance of the urethra Urethra: normal appearance of the urethra Speculum Exam - Vagina: normal appearance of the (more content not included)... Normal [facility] Breast imaging reportOrdered By: Rhianna Chew on 12-12-2024 Study report [facility] Imaging Services [address] [place] [address] [id number] SCRN MAMM (CAD)W/GAB BILAT MR#: [id number] Acct: [id number] Name: CLARITA DAS Rep #: [id number] : 1970 F 54 From: Humera Chwe MD PCP: Dr. Nitza Levy MD Status: REG [facility] Study:SCRN MAMM (CAD)W/GAB BILAT Date of Exa m: 12/12/24 Exam# [id number] Ordering Dr: Mitra Guan CNM PROCEDURE: SCRN MAMM (CAD)W/GAB BILAT REASON FOR EXAM: F, Age 54 y/o, presents for annual screening mammogram. Family history of breast cancer in her mother at age 77. TECHNIQUE: Bilateral screening digital breast tomosynthesis with 2D and 3D images. Computeraided detection. COMPARISON: 12/08/2023, 02/16/2022. FINDINGS: There are scattered areas of fibroglandular density. No suspicious masses, areas of developing architectural distortion, or suspicious calcifications. BI/SCRN MAMM (CAD)W/GAB BILAT IMPRESSION: There is no mammographic evidence of malignancy. BI-RADS 1: NEGATIVE. RECOMMEND ANNUAL MAMMOGRAPHIC SCREENING. Follow-up code: Routine Follow-up The patient will be notified of the results by letter. Reading Location: [facility] CC: HALI Guan; Dr. Nitza Levy MD ~ Sql Database Programmer: Signed [facility] SCRN MAMM (CAD)W/GAB BILATo n 12-12-2024 SCRN MAMM (CAD)W/GAB BILAT [facility] Imaging Services [address] [place] [id number] SCRN MAMM (CAD)W/GAB BILAT MR#: [id number] Acct: [id number] Name: CLARITA DAS Rep #: [id number] : 1970 F 54 From: Rhianna Chew MD PCP: Dr. Nitza Levy MD Status: REG [facility] Study: SCRN MAMM (CAD)W/GAB BILAT Date of Exam: 02/02 Exam# [id number] Ordering Dr: Mitra Guan CNM PROCEDURE: SCRN MAMM (CAD)W/GAB BILAT REASON FOR EXAM: F, Age 54 y/o, presents for annual screening mammogram. Family history of breast cancer in her mother at age 77. TECHNIQUE: Bilateral screening digital breast tomosynthesis with 2D and 3D images. Computer aided detection. COMPARISON: 12/08/2023, 02/16/2022. FINDINGS: There are scattered areas of fibroglandular density. No suspicious masses, areas of developing architectural distortion, or suspicious calcifications. BI/SCRN MAMM (CAD)W/GAB BILAT IMPRESSION: There is no mammographic evidence of malignancy. BI-RADS 1: NEGATIVE. RECOMMEND ANNUAL MAMMOGRAPHIC SCREENING. Follow-up code: Routine Follow-up The patient will be notified of the results by letter. Reading Location: [facility] CC: HALI Guan; Dr. Nitza Levy MD Sql Database Programmer: Signed Normal [facility] Absolute lymphocyte countOrd ered By: Nitza Levy on 01-03-2024 Lymphocytes Auto (Unsp spec) [#/Vol] 1.95 10*3/uL 0.83-4.51 [facility] Automated lymphocyte count a s percentage of total leukocytesOrdered By: Nitza Levy on 01-03-2024 Lymphocytes/100 WBC Auto (Unsp spec) 29.9 % 19-41 [facility] Basophil percentageOrdered B y: Nitza Levy on 01-03-2024 Basophils/100 WBC (Bld) 0.6 % 0-1 [facility] Bilirubin [Mass/Vol] 0.40 mg/dL 0.20-1.00 [facility] Comment on above: For patients on eltr ombopag therapy, use of Dimension [place] TBIL is not recommended. Chloride [Moles/Vol] 108 mmol/L 98-107 [facility] Cholesterol [Mass/Vol] 264 mg/dL <200 [facility] Comment on above: <200 mg/dL Desirable 200-240 mg/dL Borderline >240 mg/dL High Risk Eosinophils/100 WBC (Bld) 2.3 % 0-5 [facility] Glucose [Mass/Vol] 83 mg/dL 74-106 [facility] Hemoglobin (Bld) [Mass/Vol] 13.2 g/dL 12.0-15.0 [facility] Monocytes/100 WBC (Bld) 8.7 % 0-10 [facility] Neutrophils (Bld) [#/Vol] 3.8 10*3/uL 2.0-7.7 [facility] Neutrophils/100 WBC (Bld) 58.3 % 47-70 [facility] Potassium [Moles/Vol] 4.4 mmol/L 3.5-5.1 [facility] Protein [Mass/Vol] 7.2 g/dL 6.4-8.2 [facility] Sodium [Moles/Vol] 141 mmol/L 136-145 [facility] Triglyceride [Mass/Vol] 82 mg/dL <199 [facility] Comment on above: The drugs N-Acetylcy steine and Metamizole may falsely depress this assay.Serum Triglycerides Reference Interval Normal <150 mg/dL Borderline high 150 - 199 mg/dL High 200 - 499 mg/dL Very High > or = 500 mg/dL WBC (Bld) [#/Vol] 6.5 10*3/uL 4.4-11.0 [facility] Determination of erythrocyte mean corpuscular volume (MCV)Ordered By: Nitza Levy on 01-03-2024 MCV (RBC) [Entitic vol] 94.3 fL 81-99 [facility] Erythrocyte distribution wid th ratioOrdered By: [facility] on 01-03-2024 Erythrocyte distribution width (RBC) [Ratio] 13.4 % 11.6-14.6 [facility] Erythrocyte distribution wid th standard deviationOrdered By: [facility] on 01-03-2024 Erythrocyte distribution width (RBC) [Entitic vol] 46.7 fL 35.1-43.9 [facility] Hematocrit Auto (Bld) [Volum e fraction]Ordered By: Nitza Levy on 01-03-2024 Hematocrit (Bld) [Volume fraction] 41.0 % 37-47 [facility] Immature granulocytes/100 WB C Auto (Bld)Ordered By: [facility] Hospitalneeta on 01-03-2024 Immature granulocytes/100 WBC (Bld) 0.200 % 0.0-0.9 [facility] Comment on above: IG% - Immature Granu locytes (promyelocytes, myelocytes and metamyelocytes) > 1% indicates that a LEFT SHIFT is Present. Laboratory - Chemistry and C hemistry - challengeOrdered By: Nitza Levy on 01-03-2024 Albumin/Globulin [Mass ratio] 1.1 {ratio} 0.9-2.4 [facility] ALP [Catalytic activity/Vol] 78 U/L 45-117 [facility] ALT [Catalytic activity/Vol] 20 U/L 13-56 [facility] Cholesterol in HDL [Mass/Vol] 50 mg/dL >40 [facility] Comment on above: The drugs N-Acetylcy steine and Metamizole may falsely depress this assay. Reference Range HDL <40 mg/dL Low HDL Cholesterol HDL >or= 60 mg/dL High HDL Cholesterol Cholesterol in LDL [Mass/Vol] 198 mg/dL 0-130 [facility] CO2 [Moles/Vol] 29.0 mmol/L 21.0-32.0 [facility] Globulin (S) [Mass/Vol] 3.5 g/dL 2.2-4.2 [facility] Urea nitrogen/Creatinine [Mass ratio] 22.9 mg/mg 10-20 [facility] Laboratory - Hematology and Cell countsOrdered By: Nitza Levy on 01-03-2024 MCH (RBC) [Entitic mass] 30.3 pg 27.0-32.0 [facility] MCHC (RBC) [Mass/Vol] 32.2 g/dL 32-36 [facility] Nucleated RBC/100 WBC (Bld) [Ratio] 0 % 0-5 [facility] Platelet mean volume (Bld) [Entitic vol] 9.4 fL 6.2-12.0 [facility] Platelets (Bld) [#/Vol] 337 10*3/uL 150-450 [facility] No Panel InformationOrdered By: Nitza Levy on 01-03-2024 Estimated GFR (MDRD) Amer 82 mL/min >60 [facility] Comment on above: GFR Calc Estimated GFR (MDRD) Non-Af Amer 68 mL/min >60 [facility] Comment on above: Non- GFR Calc VLDL Cholesterol 16 mg/dL 5-40 [facility] RBC Auto (Bld) [#/Vol]Ordere d By: Nitza Levy on 01-03-2024 RBC (Bld) [#/Vol] 4.35 10*6/uL 4.2-5.4 [facility] Serum or plasma calcium dave urement (mass/volume)Ordered By: Nitza Levy on 01-03-2024 Calcium [Mass/Vol] 9.0 mg/dL 8.5-10.1 [facility] Serum or plasma creatinine m easurement (mass/volume)Ordered By: Nitza Levy on 01-03-2024 Creatinine [Mass/Vol] 0.92 mg/dL 0.55-1.02 [facility] Comment on above: The validity of the calculated GFR & GFRAA in patients over 70 years has not been determined. Clinical correlation is essential. Serum or plasma thyroid stim ulating hormone (TSH) measurement (units/volume)Ordered By: Nitzaashu Levy on 01-03-2024 TSH Qn 1.69 uIU/mL 0.358-3.74 [facility] Serum or plasma urea nitroge n measurement (mass/volume)Ordered By: Nitzaashu Levy on 01-03-2024 Urea nitrogen [Mass/Vol] 21 mg/dL 7-18 [facility] Thin prep Papanicolaou smear with manual screeningOrdered By: Nitza Cam on 01-03-2024 Thin prep Papanicolaou smear with manual screening 3.7 g/dL 3.2-5.0 [facility] Thin prep Papanicolaou smear with manual screening 17 U/L 15-37 [facility] Thin prep Papanicolaou smear with manual screening 4 5-15 [facility] Thin prep Papanicolaou smear with manual screening 1.26 ng/dL 0.76-1.46 [facility] ED NOTEon 05-08-2023 ED NOTE HNO ID: [id number] Author: Rachna Lujan, MELINA Service: Emergency Medicine Author Type: Registered Nurse Type: ED Notes Filed: 05/08/2023 4:57 PM Note Text: Pt given discharge instructions, pt questions answered and pt denies any further questions at time of discharge. Pt ambulates out of dept with a steady gait. Wound care info given Normal [facility] ED NOTE HNO ID: [id number] Author: Rachna Lujan, MELINA Service: Emergency Medicine Author Type: Registered Nurse Type: ED Notes Filed: 05/08/2023 4:57 PM Note Text: No active bleeding noted through dressing Normal [facility] ED NOTE HNO ID: [id number] Author: Rachna Lujan, MELINA Service: Emergency Medicine Author Type: Registered Nurse Type: ED Notes Filed: 05/08/2023 3:35 PM Note Text: Pt cut her r thumb on a mandolin Normal [facility] ED PROV NOTEon 05-08-2023 ED PROV NOTE HNO ID: [id number] Author: Rishabh Lilly MD Service: Emergency Medicine Author Type: Physician Type: ED Provider Notes Filed: 05/08/2023 6:39 PM Note Text: ED Provider Note Patient Name: Clarita Das : 1970 SERVICE DATE: 05/08/23 History Patient presents with: Avulsion This is a 52-year-old female presenting with injury to her right thumb from a mandolin slicer. She states she sliced the tip of her right thumb and has not been able to control the bleeding. Last tetanus she thinks has been 13 or 14 years or more. She denies severe pain numbness or tingling. She denies other injury. PAST MEDICAL HISTORY Diagnosis Date Allergic rhinitis Asthma Depressive disorder, not elsewhere classified 1993 Deviated septum GERD (gastroesophageal reflux disease) Hypothyroidism 1982 IBS (irritable bowel syndrome) PAST SURGICAL HISTORY Procedure Laterality Date RHINP PRIM LATANDALAR CRTLGSAND/ELVTN NASAL TI 1993 Rhinoplasty- for deviated septum FAMILY HISTORY Problem Relation Age of Onset Arthritis Mother Asthma Father Lipids Father Thyroid Father Hypothyroidism Asthma Brother Asthma Brother Allergies Brother Allergies Brother Social History Tobacco Use Smoking status: Former Types: Cigarettes Quit date: 10/11/1995 Years since quittin.5 Smokeless tobacco: Never Tobacco comments: Socially for about 5-8 years Vaping Use Vaping Use: Not on file Substance and Sexual Activity Alcohol use: Yes Alcohol/week: 42.5 standard drinks of alcohol Types: 26 Standard drinks or equivalent, 3 Glasses of Wine (5oz), 14 Cans of Beer (12oz) per week Comment: social Drug use: No Sexual activity: Never ALLERGIES Allergen Reactions Augmentin [Amoxicil* Intolerance Latex Rash Physical Exam Vitals [05/08/23 1531] BP Pulse Temp Temp src Resp SpO2 Weight Height 127/70 72 36.6 ?C (97.9 ?F) Temporal Art 18 98 % 63.5 kg (140 lb) 1.676 m (5' 6) Physical Exam Skin: General: Skin is warm and dry. Capillary Refill: Capillary refill takes less than 2 seconds. Comments: Skin avulsion noted to the distal tip of the right thumb. It is into the subcutaneous tissue but not to the bone. It does not involve the nailbed or nail. It is actively bleeding. Nonpulsatile. Sensation around the area is intact. Cap refill less than 2 seconds. Motor function intact fully tendon function intact fully no bony tenderness. Neurological: Mental Status: She is alert. Psychiatric: Mood and Affect: Mood normal. Speech: Speech normal. Diagnostic Testing ED Labs Ordered and Reviewed - No data to display Procedures ED Course / Clinical Impression Clinical Impressions as of 05/08/231836 Avulsion of skin of right thumb, initial encounter MDM / Disposition / Plan 52-year-old with skin avulsion of the right thumb tip. Bleeding was controlled with Surgicel and a pressure dressing. Patient's tetanus was updated. Verbal and written wound care instructions were reviewed with the patient. Follow-up for wound check with primary care was recommended. Diagnosis and chief complaint specific return precautions were reviewed in detail with the patient. The patient voiced understanding. Follow-up instructions reviewed with the patient. The patient voiced understanding. SIGNATURE: MD KIM Licona JOSHUA M 05/08/23 1839 Normal [facility] - Miscellaneous t estson 09-18-2022 Service comment (Unsp spec) [Interp] Comment . [facility] Work Phone: Comment on above: Levels of Specific I gE Class Description of Class ----- < 0.10 0 Negative 0.10 - 0.31 0/I Equivocal/Low 0.32 - 0.55 I Low 0.56 - 1.40 II Moderate 1.41 - 3.90 III High 3.91 - 19.00 IV Very High 19.01 - 100.00 V Very High >100.00 Very High No Panel Informationon 09-18 Scallop Allergen <0.10 kU/L Class 0 [facility] Work Phone: Sesame Seed Allergen IgE Antibody <0.10 kU/L Class 0 [facility] Work Phone: Shrimp Allergen <0.10 kU/L Class 0 [facility] Work Phone: Serum banana IgE antibody as say (units/volume)on 09-18-2022 Banana IgE Qn (S) 0.11 kU/L Class 0/I [facility] Work Phone: Comment on above: Performed at: [address] [id number] Director: Jamila Corona MD, Phone: [phone] Serum beef IgE antibody assa y (units/volume)on 09-18-2022 Beef IgE Qn (S) <0.10 kU/L Class 0 [facility] Work Phone: Serum black walnut IgE antib daniella assay (units/volume)on 09-18-2022 Black [place] IgE Qn (S) <0.10 kU/L Class 0 [facility] Work Phone: Serum chicken IgE antibody a ssay (units/volume)on 09-18-2022 Chicken IgE Qn (S) <0.10 kU/L Class 0 [facility] Work Phone: Serum clam IgE antibody assa y (units/volume)on 09-18-2022 Clam IgE Qn (S) <0.10 kU/L Class 0 [facility] Work Phone: Serum codfish IgE antibody a ssay (units/volume)on 09-18-2022 Codfish IgE Qn (S) <0.10 kU/L Class 0 [facility] Work Phone: Serum corn IgE antibody assa y (units/volume)on 09-18-2022 [place] IgE Qn (S) 0.12 kU/L Class 0/I [facility] Work Phone: Serum cow milk IgE antibody assay (units/volume)on 09-18-2022 Cow milk IgE Qn (S) <0.10 kU/L Class 0 [facility] Work Phone: Serum egg white IgE antibody assay (units/volume)on 09-18-2022 Egg white IgE Qn (S) 0.71 kU/L Class II [facility] [place] [facility] Work Phone: Serum egg yolk IgE antibody assay (units/volume)on 09-18-2022 Egg yolk IgE Qn (S) 0.26 kU/L Class 0/I [facility] Work Phone: Serum gluten IgE antibody as say (units/volume)on 09-18-2022 Gluten IgE Qn (S) <0.10 kU/L Class 0 [facility] Work Phone: Serum peanut IgE antibody as say (units/volume)on 09-18-2022 Peanut IgE Qn (S) <0.10 kU/L Class 0 [facility] Work Phone: Serum soybean IgE antibody a ssay (units/volume)on 09-18-2022 Soybean IgE Qn (S) <0.10 kU/L Class 0 [facility] Work Phone: Serum wheat IgE antibody ass ay (units/volume)on 09-18-2022 Wheat IgE Qn (S) 0.12 kU/L Class 0/I [facility] Work Phone: Absolute lymphocyte counton 08-31-2022 Lymphocytes Auto (Unsp spec) [#/Vol] 1.68 10*3/uL 0.83-4.51 [facility] Work Phone: Basophil percentageon 2021 Basophils/100 WBC (Bld) 0.5 % 0-1 [facility] Work Phone: Bilirubin [Mass/Vol] 0.50 mg/dL 0.20-1.00 [facility] [place] [facility] Work Phone: Comment on above: For patients on eltr ombopag therapy, use of Dimension [place] TBIL is not recommended. Chloride [Moles/Vol] 105 mmol/L 98-107 [facility] [place] [facility] Work Phone: Cholesterol [Mass/Vol] 234 mg/dL <200 [facility] Work Phone: Comment on above: <200 mg/dL Desirable 200-240 mg/dL Borderline >240 mg/dL High Risk Eosinophils/100 WBC (Bld) 2.7 % 0-5 [facility] Work Phone: Glucose [Mass/Vol] 84 mg/dL 74-106 [facility] Work Phone: Neutrophils (Bld) [#/Vol] 3.5 10*3/uL 2.0-7.7 [facility] Work Phone: Neutrophils/100 WBC (Bld) 58.2 % 47-70 [facility] Work Phone: Potassium [Moles/Vol] 4.3 mmol/L 3.5-5.1 [facility] Work Phone: Protein [Mass/Vol] 7.3 g/dL 6.4-8.2 [facility] Work Phone: Sodium [Moles/Vol] 140 mmol/L 136-145 [facility] Work Phone: Triglyceride [Mass/Vol] 92 mg/dL <199 [facility] Work Phone: Comment on above: The drugs N-Acetylcy steine and Metamizole may falsely depress this assay.Serum Triglycerides Reference Interval Normal <150 mg/dL Borderline high 150 - 199 mg/dL High 200 - 499 mg/dL Very High > or = 500 mg/dL WBC (Bld) [#/Vol] 5.9 10*3/uL 4.4-11.0 [facility] Work Phone: Blood erythrocytes count (nu mber/volume)on 08-31-2022 RBC (Bld) [#/Vol] 4.25 10*6/uL 4.2-5.4 [facility] Work Phone: Blood hemoglobin measurement (mass/volume)on 08-31-2022 Hemoglobin (Bld) [Mass/Vol] 13.2 g/dL 12.0-15.0 [facility] Work Phone: Blood lymphocytes/100 leukoc yteson 08-31-2022 Lymphocytes/100 WBC (Bld) 28.4 % 19-41 [facility] Work Phone: Blood monocytes/100 leukocyt eson 08-31-2022 Monocytes/100 WBC (Bld) 10.0 % 0-10 [facility] Work Phone: Blood platelet mean volumeon 08-31-2022 Platelet mean volume (Bld) [Entitic vol] 9.6 fL 6.2-12.0 [facility] Work Phone: Determination of erythrocyte mean corpuscular volume (MCV)on 08-31-2022 MCV (RBC) [Entitic vol] 94.1 fL 81-99 [facility] Work Phone: Hematocrit Auto (Bld) [Volum e fraction]on 08-31-2022 Hematocrit (Bld) [Volume fraction] 40.0 % 37-47 [facility] Work Phone: Laboratory - Chemistry and C hemistry - challengeon 08-31-2022 ALP [Catalytic activity/Vol] 81 U/L 45-117 [facility] Work Phone: ALT [Catalytic activity/Vol] 31 U/L 13-56 [facility] Work Phone: CO2 [Moles/Vol] 29.0 mmol/L 21.0-32.0 [facility] Work Phone: Free T4 [Mass/Vol] 1.63 ng/dL 0.76-1.46 [facility] Work Phone: Globulin (S) [Mass/Vol] 3.8 g/dL 2.2-4.2 [facility] Work Phone: Urea nitrogen/Creatinine [Mass ratio] 14.4 mg/mg 10-20 [facility] Work Phone: Laboratory - Hematology and Cell countson 08-31-2022 Erythrocyte distribution width (RBC) [Entitic vol] 46.5 fL 35.1-43.9 [facility] Work Phone: Erythrocyte distribution width (RBC) [Ratio] 13.5 % 11.6-14.6 [facility] Work Phone: Immature granulocytes/100 WBC (Bld) 0.200 % 0.0-0.9 [facility] Work Phone: Comment on above: IG% - Immature Granu locytes (promyelocytes, myelocytes and metamyelocytes) > 1% indicates that a LEFT SHIFT is Present. MCH (RBC) [Entitic mass] 31.1 pg 27.0-32.0 [facility] Work Phone: Nucleated RBC/100 WBC (Bld) [Ratio] 0 % 0-5 [facility] Work Phone: MCHC Auto (RBC) [Mass/Vol]on 08-31-2022 MCHC (RBC) [Mass/Vol] 33.0 g/dL 32-36 [facility] Work Phone: No Panel Informationon 08-31 Estimated GFR (MDRD) Amer 77 mL/min >60 [facility] Work Phone: Comment on above: GFR Calc Estimated GFR (MDRD) Non-Af Amer 64 mL/min >60 [facility] Work Phone: Comment on above: Non- GFR Calc Thyroid Stimulating Hormone (TSH) 1.50 uIU/mL 0.358-3.74 [facility] Work Phone: Platelets bldon 08-31-2022 Platelets (Bld) [#/Vol] 389 10*3/uL 150-450 [facility] Work Phone: Serum or plasma albumin dave urement (mass/volume)on 08-31-2022 Albumin [Mass/Vol] 3.5 g/dL 3.2-5.0 [facility] Work Phone: Serum or plasma albumin/glob ulin mass ratioon 08-31-2022 Albumin/Globulin [Mass ratio] 0.9 {ratio} 0.9-2.4 [facility] Work Phone: Serum or plasma calcium dave urement (mass/volume)on 08-31-2022 Calcium [Mass/Vol] 8.7 mg/dL 8.5-10.1 [facility] Work Phone: Serum or plasma cholesterol in HDL measurement (mass/volume)on 08-31-2022 Cholesterol in HDL [Mass/Vol] 42 mg/dL >40 [facility] Work Phone: Comment on above: The drugs N-Acetylcy steine and Metamizole may falsely depress this assay. Reference Range HDL <40 mg/dL Low HDL Cholesterol HDL >or= 60 mg/dL High HDL Cholesterol Serum or plasma cholesterol in VLDL measurement (mass/volume)on 08-31-2022 Cholesterol in VLDL [Mass/Vol] 18 mg/dL 5-40 [facility] Work Phone: Serum or plasma creatinine m easurement (mass/volume)on 08-31-2022 Creatinine [Mass/Vol] 0.97 mg/dL 0.55-1.02 [facility] Work Phone: Comment on above: The validity of the calculated GFR & GFRAA in patients over 70 years has not been determined. Clinical correlation is essential. Serum or plasma low density lipoprotein (LDL) cholesterol measurement (mass/volume)on 08-31-2022 Cholesterol in LDL [Mass/Vol] 174 mg/dL 0-130 [facility] Work Phone: Serum or plasma urea nitroge n measurement (mass/volume)on 08-31-2022 Urea nitrogen [Mass/Vol] 14 mg/dL 7-18 [facility] Work Phone: Thin prep Papanicolaou smear with manual screeningon 08-31-2022 Thin prep Papanicolaou smear with manual screening 18 U/L 15-37 [facility] Work Phone: Thin prep Papanicolaou smear with manual screening 6 5-15 [facility] Work Phone: Cervical or vagninal specime n microscopic examination by cytology stain (reported ason 02-03-2022 Cytology report Cyto stain Doc (Cvx/Vag) Comment [facility] Work Phone: Comment on above: The Pap smear is a s creening test designed to aid in thedetection of premalignant and malignant conditions of theuterine cervix. It is not a diagnostic procedure andshould not be used as the sole means of detecting cervicalcancer. Both false-positive and false-negative reports dooccur. Detection in cervical specim en of any of human papilloma virus (HPV) 16, 18, 31, 33,on 02-03-2022 HPV 16+18+31+33+35+39+45 +51+52+56+58+59+66+6 8 DNA Probe+sig amp Ql (Cvx) Negative Negative [facility] Work Phone: Comment on above: This nucleic acid am plification test detects fourteen high- risk HPV types (16,18,31,33,35,39,45,51,52,56,58,59,66,68)without differentiation.Performed at: - [address] [id number] Director: Anabelle Live MD, Phone: [phone] at: =G - [facility] [address] [id number] Director: Anabelle Live MD, Phone: [phone] Laboratory - Cytologyon 01-10 Sock Mender Cyto stain Nom (Cvx/Vag) [ID] Comment [facility] Work Phone: Comment on above: Mireya Woodward, Cytot echnologist (ASCP) Laboratory - Miscellaneous t estson 02-03-2022 Service comment (Unsp spec) [Interp] Comment [facility] Work Phone: Comment on above: This liquid based Th inPrep(R) pap test was screened withthe use of an image guided system. Service comment (Unsp spec) [Interp] . [facility] Work Phone: No Panel Informationon 02-03 Pathology report final diagnosis Narrative Comment [facility] Work Phone: Comment on above: NEGATIVE FOR INTRAEP ITHELIAL LESION OR MALIGNANCY. DHEASon 01-19-2018 DHEA-SO4 221 mcg/dL Normal 35-430 [facility] ([place]) Comment on above: Performed By: #### F T4, FT3, TSH ####[place] [address]#### TESTO, PROG, E2, MCRSO, DHEAS ####[place] [address] E2on 01-14-2018 Estradiol Level 44 pg/mL Normal [facility] ([place]) Comment on above: Result Comment: Adul t Female E2 Reference Ranges (10/16/11): Follicular phase 21 - 165 pg/mL Midcycle 50 - 367 pg/mL Luteal phase 40 - 259 pg/mL Post menopausal 11 - 58 pg/mL Performed By: #### F T4, FT3, TSH ####[place] [address]#### TESTO, PROG, E2, MCRSO, DHEAS ####[place] [address] FT3on 01-14-2018 Triiodothyronine (T3) free 2.4 pg/mL Normal 2.3-4.0 [facility] ([place]) Comment on above: Performed By: #### F T4, FT3, TSH ####[place] [id number]#### TESTO, PROG, E2, MCRSO, DHEAS ####[place] [address] FT4on 01-14-2018 Thyroxine (T4) free 1.2 ng/mL Normal 0.6-1.7 [facility] ([place]) Comment on above: Performed By: #### F T4, FT3, TSH ####[place] [address]#### TESTO, PROG, E2, MCRSO, DHEAS ####[place] [address] PROGon 01-14-2018 Progesterone Level 7.0 ng/mL Normal [facility] ([place]) Comment on above: Result Comment: Adul t Female Progesterone Reference Ranges (09/11/99): Follicular phase 0.2 - 1.4 ng/mL Luteal phase 3.3 - 25.6 ng/mL Mid-Luteal phase 4.4 - 28.0 ng/mL Postmenopausal 0.2 - 0.7 ng/mlAdult Male: 0.3 - 1.2 ng/mL Performed By: #### F T4, FT3, TSH ####[place] [address]#### TESTO, PROG, E2, MCRSO, DHEAS ####[place] [address] TESTOon 01-14-2018 Testosterone Lvl 49.4 ng/dL Normal 14.0-76.0 [facility] ([place]) Comment on above: Performed By: #### F T4, FT3, TSH ####[place] [address]#### TESTO, PROG, E2, MCRSO, DHEAS ####[place] [address] TSHon 01-14-2018 Thyroid stimulating hormone (TSH) 2.39 mcIU/mL Normal 0.27-4.20 [facility] ([place]) Comment on above: Performed By: #### F T4, FT3, TSH ####[place] [address]#### TESTO, PROG, E2, MCRSO, DHEAS ####[place] [address] DHEASon 09-22-2017 DHEA-SO4 95 mcg/dL Normal 35-430 [facility] ([place]) Comment on above: Performed By: #### F T4, FT3, TSH ####[place] [address]#### TESTO, PROG, E2, MCRSO, DHEAS ####[place] [address] E2on 09-20-2017 Estradiol Level 50 pg/mL Normal [facility] ([place]) Comment on above: Result Comment: Adul t Female E2 Reference Ranges (10/16/11): Follicular phase 21 - 165 pg/mL Midcycle 50 - 367 pg/mL Luteal phase 40 - 259 pg/mL Post menopausal 11 - 58 pg/mL Performed By: #### F T4, FT3, TSH ####[place] [place] [place] [address]#### TESTO, PROG, E2, MCRSO, DHEAS ####[place] [address] FT3on 09-20-2017 Triiodothyronine (T3) free 2.4 pg/mL Normal 2.3-4.0 [facility] ([place]) Comment on above: Performed By: #### F T4, FT3, TSH ####[place] [address]#### TESTO, PROG, E2, MCRSO, DHEAS ####[place] [address] FT4on 09-20-2017 Thyroxine (T4) free 1.1 ng/mL Normal 0.6-1.7 [facility] ([place]) Comment on above: Performed By: #### T SH, FT4, FT3 ####[place] [address]#### TESTO, PROG, E2, DHEAS ####[place] [address] PROGon 09-20-2017 Progesterone Level 8.9 ng/mL Normal [facility] ([place]) Comment on above: Result Comment: Adul t Female Progesterone Reference Ranges (09/11/99): Follicular phase 0.2 - 1.4 ng/mL Luteal phase 3.3 - 25.6 ng/mL Mid-Luteal phase 4.4 - 28.0 ng/mL Postmenopausal 0.2 - 0.7 ng/mlAdult Male: 0.3 - 1.2 ng/mL Performed By: #### F T4, FT3, TSH ####[place] [place] [place] [address]#### TESTO, PROG, E2, MCRSO, DHEAS ####[address] [address] TESTOon 09-20-2017 Testosterone Lvl 59.3 ng/dL Normal 14.0-76.0 [facility] ([place]) Comment on above: Performed By: #### F T4, FT3, TSH ####[place] [address]#### TESTO, PROG, E2, MCRSO, DHEAS ####[place] [address] TSHon 09-20-2017 Thyroid stimulating hormone (TSH) 2.90 mcIU/mL Normal 0.27-4.20 [facility] ([place]) Comment on above: Performed By: #### T SH, FT4, FT3 ####[place] [address]#### TESTO, PROG, E2, DHEAS ####[place] [address] DHEASon 06-23-2017 DHEA-SO4 48 mcg/dL Normal 35-430 [facility] ([place]) Comment on above: Result Comment: Spec imen slightly hemolyzed Performed By: #### F T4, FT3, TSH ####[place] [address]#### TESTO, PROG, E2, MCRSO, DHEAS ####[place] [address] [id number] 06-22-2017 Microsomal Ab <10 Normal 0-35 [facility] ([place]) Comment on above: Result Comment: This result represents Anti-TPO antibodies which aresynonymous with microsomal antibodies. Performed By: #### F T4, FT3, TSH ####[place] [address]#### TESTO, PROG, E2, MCRSO, DHEAS ####[place] [address] E2on 2017 Estradiol Level 38 pg/mL Normal [facility] ([place]) Comment on above: Result Comment: Adul t Female E2 Reference Ranges (10/16/11): Follicular phase 21 - 165 pg/mL Midcycle 50 - 367 pg/mL Luteal phase 40 - 259 pg/mL Post menopausal 11 - 58 pg/mL Performed By: #### F T4, FT3, TSH ####[place] [id number] [place] [address]#### TESTO, PROG, E2, MCRSO, DHEAS ####[place] [address] FT3on 2017 Triiodothyronine (T3) free 2.4 pg/mL Normal 2.3-4.0 [facility] ([place]) Comment on above: Performed By: #### F T4, FT3, TSH ####[place] [address]#### TESTO, PROG, E2, MCRSO, DHEAS ####[place] [address] FT4on 2017 Thyroxine (T4) free 1.2 ng/mL Normal 0.6-1.7 [facility] ([place]) Comment on above: Performed By: #### F T4, FT3, TSH ####[place] [address]#### TESTO, PROG, E2, MCRSO, DHEAS ####[place] [address] PROGon 2017 Progesterone Level 12.2 ng/mL Normal [facility] ([place]) Comment on above: Result Comment: Adul t Female Progesterone Reference Ranges (09/11/99): Follicular phase 0.2 - 1.4 ng/mL Luteal phase 3.3 - 25.6 ng/mL Mid-Luteal phase 4.4 - 28.0 ng/mL Postmenopausal 0.2 - 0.7 ng/mlAdult Male: 0.3 - 1.2 ng/mL Performed By: #### F T4, FT3, TSH ####[place] [address]#### TESTO, PROG, E2, MCRSO, DHEAS ####[address] [address] TESTOon 2017 Testosterone Lvl 42.0 ng/dL Normal 14.0-76.0 [facility] ([place]) Comment on above: Performed By: #### F T4, FT3, TSH ####[place] [address] [place], [place] [address]#### TESTO, PROG, E2, MCRSO, DHEAS ####[place] [address] TSHon 2017 Thyroid stimulating hormone (TSH) 4.50 mcIU/mL High 0.27-4.20 [facility] ([place]) Comment on above: Result Comment: Abov e normal(expected)range Performed By: #### F T4, FT3, TSH ####[place] [address] [place], [place] [address]#### TESTO, PROG, E2, MCRSO, DHEAS ####[place] [id number] Vital Signs Date Time Vital Sign Value Performing Clinician Faci lity 12-30-2023 09:33-0400 Body temperature 97.1 [degF] Dr. Nitza Levy Work Phone: [facility] 12-30-2023 09:33-0400 Diastolic blood pressure 59 mm[Hg] Dr. Nitza Levy Work Phone: [facility] 12-30-2023 09:33-0400 Heart rate 58 /min Dr. Nitza Levy Work Phone: [facility] 12-30-2023 09:33-0400 Respiratory rate 16 /min Dr. Nitza Levy Work Phone: [facility] 12-30-2023 09:33-0400 SaO2% (BldA) [Mass fraction] 99 % Dr. Nitza Levy Work Phone: [facility] 12-30-2023 09:33-0400 Systolic blood pressure 95 mm[Hg] Dr. Nitza Levy Work Phone: [facility] 12-30-2023 07:47-0400 Body height 167.[address] Nitza Levy Work Phone: [facility] 12-30-2023 07:47-0400 Body mass index (BMI) [Ratio] 23.8 kg/m2 Dr. Nitza Levy Work Phone: [facility] 12-30-2023 07:47-0400 Body weight 67.[address] Nitza Levy Work Phone: [facility] 12-08-2023 10:58-0500 Body height 167.[address] Nitza Levy Work Phone: [facility] 12-08-2023 10:58-0500 Body mass index (BMI) [Ratio] 23.3 kg/m2 Dr. Nitza Levy Work Phone: [facility] 12-08-2023 10:58-0500 Body weight 65.[address] Nitza Levy Work Phone: [facility] Encounters Encounter Date Encounter Type Care Provider Facility Start: 06-04-2025 End: 06-04-2025 Subsequent hospital visit by physician Adán Cabello MD Work Phone: [facility] Radiology Comment on above: Dyspnea, unspecified Start: 06-04-2025 End: 06-04-2025 ambulatory ADÁN CABELLO [facility] Start: 01-25-2025 Encounter for gynecological examination (general) (routine) without abnormal findings iMtra Guan [facility] Start: 01-25-2025 End: 01-25-2025 ambulatory Nitza Levy Facility:[facility] Start: 12-12-2024 End: 12-12-[address] Nitza Levy MD Work Phone: [facility] Work Phone: Start: 12-12-2024 End: 12-12-2024 Patient encounter procedure Mitra Guan CNM -Outpatient Breast Imaging Work Phone: Start: 12-12-2024 End: 12-12-2024 ambulatory Mitra Guan Facility:[facility] Start: 02-07-[address] Nitza Levy MD Work Phone: [facility] Start: 01-03-2024 End: 01-03-[address] Nitza Levy Work Phone: [facility] Work Phone: Start: 01-03-2024 End: 01-03-[address] Nitza Levy Work Phone: [facility]Laboratory Work Phone: Start: 12-30-2023 Non-patient / Non-visit Dr. Pancho Levy Work Phone: [facility] Start: 12-30-2023 End: 12-30-2023 Admission to same day surgery center Dr. Nitza Levy Work Phone: [facility]End[facility] Work Phone: Start: 12-30-2023 End: 12-30-[address] Nitza Levy Work Phone: [facility] Work Phone: Start: 12-08-2023 Non-patient / Non-visit Dr. Pancho Levy Work Phone: [facility] Work Phone: Start: 12-08-2023 End: 12-08-[address] Nitza Levy Work Phone: [facility] Work Phone: Start: 12-08-2023 End: 12-08-[address] Nitza Levy Work Phone: [facility]-Outpatient Breast Imaging Work Phone: Start: 05-08-2023 End: 05-08-2023 Emergency department patient visit NITZA LEVY Facility:[facility] Start: 09-18-2022 End: 09-18-2022 ambulatory [facility] Work Phone: Start: 09-18-2022 End: 09-18-2022 Patient encounter procedure [facility], [facility] Start: 08-31-2022 End: 08-31-2022 Patient encounter procedure [facility] Start: 02-16-2022 End: 02-16-2022 Patient encounter procedure [facility] Start: 02-03-2022 End: 02-03-2022 Patient encounter procedure [facility]Labor[facility], Specimen Start: 01-14-2018 End: 01-15-2018 Ambulatory FAVIOLA KNUTSON Facility:[facility] Start: 09-20-2017 End: 09-21-2017 Ambulatory FAVIOLA KNUTSON Facility:[facility] Start: 2017 End: 06-17-2017 Ambulatory FAVIOLA KNUTSON Facility:[facility] Procedures Date Procedure Procedure Detail Performing Clinician Start: 06-04-2025 Radiologic exam ches t 2 views Adán Cabello MD Work Phone: Start: 12-12-2024 Screening mammography Paul Levy MD Work Phone: Start: 12-30-[address] Nitza Levy Work Phone: Start: 12-08-2023 Screening mammography Paul Levy Work Phone: Start: 09-18-2022 Radiography of esophagus Start: 02-16-2022 Screening mammography Start: 10-09-2010 Microscopic observat ion [Identifier] in Cervix by Cyto stain Adán Cabello MD Work Phone: Plan of Treatment Date Care Activity Detail Author Start: 2044 RSV Immunization for Adults (1 - 1-dose 75+ series) RSV Immunization for Adults (1 - 1-dose 75+ series) [facility] Start: 05-08-2033 DTaP/Tdap/Td Vaccines (2 - Td or Tdap) DTaP/Tdap/Td Vaccines (2 - Td or Tdap) [facility] Start: 06-11-2025 Influenza vaccination Influenza Vaccine (#1) [facility] Start: 06-11-2024 COVID-19 Vaccine ( season) COVID-19 Vaccine () [facility] Start: 12-30-2023 Colonoscopy flx dx w/collj spec when pfrmd DIAGNOSTIC COLONOSCOPY [facility] Start: 12-30-2023 Patient discharge [facility] Start: 2019 Zoster Vaccines (1 of 2) Zoster Vaccines (1 of 2) [facility] Start: 10-09-2013 Screening for malignant neoplasm of cervix [facility] Start: 2009 Screening for malignant neoplasm of breast Mammogram [facility] Start: 1999 Screening for malignant neoplasm of cervix HPV/Cotest [facility] Start: 1988 Hepatitis B Vaccines (1 of 3 - 19+ 3-dose series) Hepatitis B Vaccines (1 of 3 - 19+ 3-dose series) [facility] Start: 1988 Pneumococcal Vaccine: 50+ Years (1 of 2 - PCV) Pneumococcal Vaccine: 50+ Years (1 of 2 - PCV) [facility] Start: 1987 Hepatitis C screening Hepatitis C Screening [facility] Start: 1981 Depression Monitoring Depression Monitoring [facility] Start: 1970 MMR Vaccines (1 of 1 - Standard series) MMR Vaccines (1 of 1 - Standard series) [facility] Start: 1969 HIV screening HIV Screening [facility] Start: 1969 Screening for malignant neoplasm of colon [facility] Colonoscopy [facility] Patient referral [facility] Work Phone: Payers Date Payer Category Payer Self-pay [id number] 2020 [employer] - [employer] KIRSTIE LARA [id number] 2020 Unknown [id number] Private Health Insurance [id number] Private Health Insurance [facility] [id number] Unknown [id number] Unknown [id number] Social History Date Type Detail Facility Start: 06-27-2018 End: 12-29-2023 Tobacco smoking status NHIS Unknown if ever smoked [facility] Start: 1970 Sex Assigned At Female [facility] Start: 01-20-2024 Tobacco smoking status NHIS Never smoked tobacco (finding) [facility] Start: 05-11-2022 End: 12-22-2024 Sex Female (finding) [facility] Start: 1970 Sex assigned at Not on file [facility] Gender identity Not on file [facility] NEGATED: Highlighted row [facility] Goals Date Patient Goal Desired Activity /State Mental Status Date Assessment Result Facility 12-30-2023 Cognitive function Voice/Name [facility] Work Phone: Procedure note 12-30-2023 Note Date & Type Note Facility 12-30-2023 Procedure note [facility] Procedure note 12-30-2023 Note Date & Type Note Facility 12-30-2023 Procedure note [facility] Clinical Note 02-03-2022 Note Date & Type Note Facility 02-03-2022 Note [facility] Work Phone: Pap Smear Specimen Adequacy February 03, 2022 4:00pm Comment Satisfactory for evaluation. Endocervical and/or squamous metaplasticcells (endocervical component) are present. Comment on above: Satisfactory for cheryle luation. Endocervical and/or squamous metaplasticcells (endocervical component) are present. Clinical Note 02-03-2022 Note Date & Type Note Facility 02-03-2022 Note [facility] Work Phone: Pap Smear Specimen Adequacy February 03, 2022 4:00pm Comment Satisfactory for evaluation. Endocervical and/or squamous metaplasticcells (endocervical component) are present. Comment on above: Satisfactory for cheryle luation. Endocervical and/or squamous metaplasticcells (endocervical component) are present. Evaluation note Note Date & Type Note Facility Evaluation note No assessment information availa ble [facility] Work Phone: Evaluation note Note Date & Type Note Facility Evaluation note Diagnosis Onset Date Encounter for screening for malignant neoplasm of colon acute [facility] Work Phone: Evaluation note Note Date & Type Note Facility Evaluation note Diagnosis Dyspnea, unspecified documented in this encounter [facility] History and physical note Note Date & Type Note Facility History and physical note Note Date/Time December 30, 2023 9:01am [facility] Medical Records Department [address] [place] [address] History & Physical Exam 12/30/23 0859 MR#: [id number] Acct: [id number] Name: CLARITA DAS Rep #:[id number] : 1970 53 From: Jose D Friend DO PCP: Dr. Ntiza Levy MD Status:[facility] Location: [place] [address] HPI - General General Date of Admission: 12/30/23 Date of Service: 12/30/23 Chief Complaint: Screening colonoscopy HPI Narrative CLARITA DAS, is a 53 F who presents today for screening colonoscopy. She had a colonoscopy back in 2011 but that was normal. She does not have any problems with her bowels. She does not have any chest pain shortness of breath. She did not have any weaknes, nausea vomiting or diarrhea. Overall she is in very good health. [facility] Medical History Alcohol use Asthma Depression GERD (gastroesophageal reflux disease) Heart murmur History of asthma History of esophageal dilatation History of irregular heartbeat Hypothyroidism Non-smoker Thyroid disease Wears glasses Home Medications levothyroxine 100 mcg tablet (Synthroid) 100 mcg PO DAILY 06/27/18 [History Last Taken 12/30/23] omeprazole 20 mg tablet,delayed release 20 mg PO DAILY #60 tabs 06/27/18 [Rx Last Taken 12/30/23] fluticasone propionate 50 mcg/actuation nasal spray,suspension 2 spray intranasal DAILY PRN allergy symptoms 12/08/23 [History Last Taken Unknown] vitamin C 30 mg-zinc citrate 1.1 mg-elderberry 25 mg chewable tablet (Sambucus Elderberry) 1 tab PO .QD 12/08/23 [History Last Taken Unknown] Allergy/AdvReac Type Severity Reaction Status Date / Time amoxicillin Allergy Mild rash Verified 12/30/23 07:45 latex Allergy Mild rash Verified 12/30/23 07:45 Family History (Updated 06/27/18 @ 08:59 by Macey Collier) Father Hypertension Asthma Mother Breast cancer Surgical History History of colonoscopy (~2011) History of esophagogastroduodenoscopy (EGD) History of nasal septoplasty Social History (Updated 12/08/23 @ 10:53 by Kaylee Tanner) current occupational status: employed Smoking Status: Never smoker substance use type: does not use ROS Review of Systems ROS Unobtainable: other Constitutional Constitutional: Denies fatigue, fever(s), poor appetite, weight gain or weight loss ENT HEENT: Denies mouth lesions Cardiovascular Cardiovascular: Denies abdominal bloating, abdominal edema or abdominal pain Respiratory/Chest Respiratory/Chest: Denies change in mental status, change in phlegm color, chestcongestion or chest tightness Gastrointestinal Gastrointestinal: Denies belching, bloating, change in bowel habits, change in stool character, chewing difficulty, coffee ground emesis, constipation, cramping, diarrhea, dyspepsia, dysphagia, early satiety, excessive flatus, fecalincontinence, heartburn, hematemesis, hematochezia, hemorrhoids, loose stools, melena, nausea, odynophagia, rectal bleeding, tenesmus, vomiting or weight changes Genitourinary Genitourinary: Denies abdominal discomfort, burning urination or itching Musculoskeletal Musculoskeletal: Reports as per HPI; Denies muscle weakness or myalgias Integumentary Integumentary: Denies jaundice Neurologic Neurologic: Denies lack of coordination or weakness Psychiatric Psychiatric: Denies confusion, depression, memory loss, mood swings, paranoia orsuicidal ideation Endocrine Endocrinology: Denies systems reviewed and no addt'l complaints, except as documented Hematologic/Lymphatic Hematologic/Lymphatic: Denies anemia, easy bleeding, easy bruising or lymphadenopathy Allergic/Immunologic Allergic/Immunologic: Denies systems reviewed and no addt'l complaints, except as documented Vital Signs Vital Signs Vital Signs: 12/30/23 07:47 12/30/23 07:47 Temperature 97.8 F Temperature Source Temporal Pulse Rate 82 Respiratory Rate 18 Respiratory Pattern Normal Blood Pressure 107/66 Blood Pressure Mean 79 Blood Pressure Source Monitor Blood Pressure Position Semi-Fowlers Blood Pressure Location Right Arm Pulse Ox 100 Oxygen Delivery Method Room Air Weight Weight: 148 lb Body Mass Index (BMI) 23.8 Physical Exam Const alert, oriented x3, no apparent distress, healthy appearing and well nourished General Appearance: cooperative, comfortable, well kempt and well developed Orientation / Consciousness: awake and oriented to person HEENT Head and Scalp: normocephalic and atraumatic Face and Sinus: normal facial exam Mouth: oral and palatal mucosa normal Eyes General Eye: normal appearance of both eyes Neck full ROM Lymph Lymphatic: no lymphadenopathy noted Chest inspection of chest normal Resp normal respiratory effort and no use of accessory muscles Cardio regular rate and regular rhythm GI normal to inspection, nondistended, normoactive bowel sounds, soft to palpation,non-tender, non-distended and no masses Auscultation: normoactive bowel sounds Palpation: soft Percussion: normal to percussion Rectal Exam: visual inspection normal and normal sphincter tone no CVA tenderness Back/Spine no CVA tenderness and normal ROM Extremity normal to inspection Peripheral Pulses: Yes pulses 2+ throughout Skin no rashes or lesions noted General Skin Exam: no breakdown, elasticity normal and turgor normal Neuro oriented x3 Motor Exam: strength 5/5 throughout Psych mental status grossly normal Appearance: grossly normal Attitude: calm Activity / Motor Behavior: appropriate eye contact Speech: normal speech Thought Process: normal thought process Thought Content: normal thought content Attention / Concentration: attention grossly intact Memory / Cognition: memory grossly intact Insight: insight good Judgement: judgement good Assessment & Plan Assessment/Plan (1) Encounter for screening for malignant neoplasm of colon: PLAN: 53-year-old comes in for screening colonoscopy. She was explained alternatives, risk, benefits including not withstanding bleeding, infection, sepsis, perforation, need for emergent surgery and . She will have an ASA of 2. 12/30/23 0901 <Electronically signed by Jose D Mackey DO> Cosigner Signature (if applicable): CC: Dr. Nitza Levy MD; Jose D Mackey DO~ Signed [facility] Work Phone: Reason for referral (narrative) Note Date & Type Note Facility Reason for referral (narrative) No reason for referral information available [facility] Work Phone: Summary Purpose Family History Relationship Condition Age at Onset Recorded Date/T abbie father Hypertension Unknown Asthma Unknown mother Malignant neoplasm of breast Unknown Relationship Condition Age at Onset Recorded Date/T abbie mother Malignant neoplasm of breast Unknown Hypertension Unknown Advance Directives Advance Directive Response Recorded Date/ Time Living Will No December 29, 2023 8:48am 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 ([place]) DATE CREATED AUTHOR AUTHOR'S ORGANIZ ATION 05/08/2023 [facility] DATE CREATED AUTHOR AUTHOR'S ORGANIZ ATION 01/27/2025 [facility] DATE CREATED AUTHOR AUTHOR'S ORGANIZ ATION 06/05/2025 [facility] Goals (unrecognized section and content) Goals may be documented in a n alternate sectionGoals may be documented in an alternate sectionGoals may be documented in an alternate sectionGoals may be documented in an alternate sectionGoals may be documented in an alternate section Care Teams (unrecognized sec tion and content) Team Status: Active Member Role Status Dates Dr. Nitza Levy MD Primary Care Provider Active Team Status: Inactive Member Role Status Dates Dr. Nitza Levy MD Primary Care Provider Active Start: December 12, 2024 End: December 12, 2024 Mitra Guan CNM Attending Provider Active S tart: December 12, 2024 End: December 12, 2024 Mitra Guan CNM Referring Provider Active S tart: December 12, 2024 End: December 12, 2024 Team Status: Active Member Role Status Dates Dr. Nitza Levy MD Primary Care Provider Active [facility] Attending Provider Active Team Status: Inactive Member Role Status Dates Dr. Nitza Levy MD Primary Care Prov ider, Attending Provider, Referring Provider Active Team Status: Active Member Role Status Dates Dr. Nitza Levy MD Primary Care Provider, Referrin g Provider Active Dr. Jose D Mackey DO Attending Provider, Other Prov ider Active Team Status: Inactive Member Role Status Dates Dr. Nitza Levy MD Primary Care Provider, Referrin g Provider Active Dr. Jose D Mackey DO Attending Provider Active Team Status: Inactive Member Role Status Dates Dr. Nitza Levy MD Primary Care Provider, Attendin g Provider Active Director Of Psychiatry Relationship Specialty Start Date End Date Nitza Levy MD [address] [facility] [place] [id number] PCP - General Family Medicine 06/04/25 FOR RECORDS PERTAINING TO PATIENTS WHO ARE [...] BE BASED ON THE PRIMARY CLINICAL RECORDS. [employer] provides no warranty or guarantee of the accuracy or completeness of information in this document.
[2025-09-04 08:26] LABS: Hematocrit 39.8 % (37-47); Hemoglobin 12.9 g/dL (12.0-15.0); Immature Granulocytes Count 0.020 X10^3/uL (0.0-0.0); Mean Corp Hgb Conc 32.4 g/dL (32-36); Mean Corpuscular Volume 94.1 fL (81-99); Mean Platelet Vol. 9.4 fl (6.2-12.0); NRBC Flagged by Analyzer 0 % (0-5); Platelet Count 328 K/mm3 (150-450); RBC Distribution Width CV 13.7 % (11.6-14.6); RBC Distribution Width SD 47.6 fl (35.1-43.9); Red Blood Count 4.23 M/mm3 (4.2-5.4); White Blood Count 5.7 K/mm3 (4.4-11.0)
[2025-09-04 09:24] LABS: AST(SGOT) 21 U/L (<=31); Alanine Aminotransfer ALT/SGPT 15 U/L (<=34); Albumin, Serum 4.0 g/dL (3.5-5.0); Alkaline Phosphatase 85 U/L (35-104); Anion Gap 10 (5-15); BUN 13 mg/dL (4-19); BUN/Creat Ratio 14.9 RATIO (10-20); Calcium,Total 9.2 mg/dL (7.6-11.0); Carbon Dioxide 26.6 mmol/L (21.0-32.0); Chloride 102 mmol/L (98-108); Cholesterol 292 mg/dL (<=200); Globulin 3.3 g/dL (2.2-4.2); Glucose 87 mg/dL (70-99); Low Density Lipoprotein Calc. 220 mg/dL; Potassium 4.2 mmol/L (3.3-5.1); Triglycerides 95 mg/dL; Very Low Density Lipoprotein 19 mg/dL (5-40); cholesterol:hdl ratio screen 5.26
== END | disposition home or self-care (01) ==
LOC: LAB 07:26
PROVIDERS: PCP Family Medicine; Referring Provider Family Medicine; Visit Provider Family Medicine
DX: Z00.00 Encounter for general adult medical examination without abnormal findings (principal); K21.9 Gastro-esophageal reflux disease without esophagitis; E03.9 Hypothyroidism, unspecified; E78.5 Hyperlipidemia, unspecified
CPT/HCPCS: 36415; 80053; 80061; 84439; 84443; 85025

== ENCOUNTER → 2025-10-01 | Outpatient (CLI) | payer BC, SELFPAY ==
--- NOTE | 2025-10-01 07:24 | CT_ITS ---
PROCEDURE: LIMITED CHEST CT CARDIAC ONLY 10/01/2025 REASON FOR EXAM: HIGH CHOLESTSTEROL Murmur. TECHNIQUE: Procedure Code: [id number] Modality: CT Procedure: LIMITED CHEST CT CARDIAC ONLY Contiguous axial scans of 2.5 mm slice thicknesses. One or more dose reduction techniques were used (e.g., automated exposure control, adjustment of mA and/or kv according to patient size, use of iterative reconstruction technique). Evaluation is limited to the non-coronary and non-cardiac findings. Only those areas demonstrated within the [id number] were evaluated. CONTRAST: Not given VOLUME: 0 mL RADIATION DOSE SUMMARY: CTDlvol: 12.19 mGy DLP: 195.04 mGycm COMPARISON: No relevant prior FINDINGS: NON-CORONARY CARDIAC FINDINGS: The myocardium, valves and pericardium have a normal appearance. NON-CARDIAC FINDINGS: Lungs: Clear. Pleural spaces: No fluid, pneumothorax or thickening. Mediastinum:The visualized mediastinum is normal with no lymphadenopathy. A few small mediastinal lymph nodes. Pulmonary vessels: Unremarkable. Chest wall: Unremarkable. Upper abdomen and bones: Normal appearance within the field of view. CT/Limited Chest CT Cardiac Only IMPRESSION: UNREMARKABLE LIMITED CHEST CT NON-CORONARY AND NON-CARDIAC ANATOMY ONLY. Reading Location: [place] [address]
--- OUTSIDE RECORDS SUMMARY | 2025-10-01 07:25 | XMS RPT_ITS | CCD ---
Author Organization [facility] Care Team Providers Care Registered Nurse Post Partum Name Role Phone FAVIOLA KNUTSON Unavailable Unavailable PHYSICIAN, NONE Unavailable Unavailable FAVIOLA KNUTSON Unavailable Unavailable PHYSICIAN, NONE Unavailable Unavailable FAVIOLA KNUTSON Unavailable Unavailable PHYSICIAN, NONE Unavailable Unavailable NITZA LEVY Primary Care Unavailable RISHABH LILLY Attending Unavailable Dr. Nitza Levy Primary Care Provider Kaylee Tanner Attending Provider Unavailable Dr. Nitza Levy Primary Care Provider Kaylee Tanner Attending Provider Unavailable Dr. Nitza Levy Referring Provider [phone] FriendDr[address] Jeffery Attending Provider FriendDr. Jeffery Other Provider Dr. Nitza Levy MD Primary Care Provider Mitra Guan CNM Attending Provider [phone] Mitra Guan CNM Referring Provider [phone] Nitza Levy Primary Care Unavailable Nitza Levy Referring Unavailable Mitra Guan Attending Unavailable Mitra Guan Attending Unavailable Mitra Guan Referring Unavailable Nitza Levy Primary Care Unavailable ADÁN CABELLO Attending Unavailable ADÁN CABELLO Referring Unavailable NITZA LEVY Primary Care Unavailable Nitza Levy MD Primary Care Provider Allergies Allergy Classification Reported Allergen(s) Allergy Type Date of Onset Reaction(s) Facility (7 sources) Amoxicillin Drug Allergy 8 [facility] (8 sources) Latex; Translations: [LATEX] Allergy to substance 9 rash [facility] Repository (1 source) AMOXICILLIN-POT CLAVULANATE; Translations: [AMOXICILLIN-POT CLAVULANATE] Propensity to adverse reactions to drug (disorder) 9 [facility] Repository (1 source) Amoxicillin Drug Allergy 5 [facility] Repository (1 source) Latex Drug allergy (disorder) 5 [facility] Repository Medications Current Medications Medication Drug [...] 59 June 27, 2018 12:00am Vit A-Vit I-A6-Mrsw-Herbal 331 (Musicane) 900 mcg-90 mg- 20 mcg-5.5 mg capsule (1 source) Start: 01-20-2024 Vit A-Vit P-D2-Zxzp-Herbal 331 (Musicane) 900 mcg-90 mg- 20 mcg-5.5 mg capsule [...] Electronically Signed Date/Time: 06/04/2025 8:29 PM EDT [facility] Patient Name: CLARITA ADKINS CH : [...] or apparent pneumothorax. Bony thorax grossly unremarkable. [facility] Alvaro Steen MD - 06/04/2025 Patient [...] Electronically Signed Date/Time: 06/04/2025 8:29 PM EDT [facility] Radiology Study observation (narrative) [facility] XR Chest 2 ViewsOrdered By: Alvaro Steen on 06-04-2025 [facility] Work Phone: Video And Sound Recorder Office Visit Reporton 01-25-2025 Video And Sound Recorder Office Visit Report [facility]'s [address], [address] [place] [address] OFFICE VISIT Date of Service: 01/25/25 MR#: [id number] Acct: [id number] Name: CLARITA DAS Rep #: [id number] : 1970 Provider: HALI Cole ams Age/Sex: 54/F Location: [facility] Status: Signed Intake Vital Signs 01/20/24 15:11 01/25/25 08:05 Height 5 ft 6 in 5 ft 6 in Weight: 163 lb 2 oz BMI 26.3 BP 113/72 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 Normal [facility] Breast imaging reportOrdered By: Rhianna Chew on 12-12-2024 Study report [facility] Imaging Services [address] [place] [address] [id number] SCRN MAMM (CAD)W/GAB BILAT MR#: [id number] Acct: [id number] Name: CLARITA DAS Rep #: [id number] : 1970 F 54 From: Humera Chew MD PCP: Dr. Nitza Levy MD Status: REG [facility] Study:SCRN MAMM (CAD)W/GAB BILAT Date of Exa m: 12/12/24 Exam# [id number] Ordering Dr: Mitra Guan CNM PROCEDURE: SCRN [...] the results by letter. Reading Location: [facility] CC: HALI Guan; Dr. 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 SCRN MAMM (CAD)W/GAB BILATo n 12-12-2024 SCRN MAMM (CAD)W/GAB BILAT [facility] Imaging Services [address] [place] [address] [id number] SCRN MAMM (CAD)W/GAB BILAT MR#: [id number] Acct: [id number] Name: CLARITA DAS Rep #: [id number] : 1970 F 54 From: Rhianna Chew MD PCP: Dr. Nitza Levy MD Status: REG CLI Study: SCRN MAMM (CAD)W/GAB BILAT Date of Exam: 02/02 Exam# [id number] Ordering Dr: Mitra Guan CNM PROCEDURE: SCRN [...] the results by letter. Reading Location: [facility] CC: HALI Guan; Dr. Nitza Levy MD Hand Tennis Ball Coverer: Signed Normal [facility] Absolute lymphocyte countOrd ered By: Nitza Levy on 01-03-2024 Lymphocytes Auto (Unsp spec) [#/Vol] 1.95 10*3/uL 0.83-4.51 [facility] Automated lymphocyte count a s percentage of total leukocytesOrdered By: Nitza Levy on 01-03-2024 Lymphocytes/100 WBC Auto (Unsp spec) 29.9 % 19-41 [facility] Basophil percentageOrdered B y: Nitza Levy on 01-03-2024 Basophils/100 WBC (Bld) 0.6 % 0-1 [facility] Bilirubin [Mass/Vol] 0.40 mg/dL 0.20-1.00 [facility] Comment on above: For patients on eltr ombopag therapy, use of Dimension [place] TBIL is not recommended. Chloride [Moles/Vol] 108 mmol/L 98-107 [facility] Cholesterol [Mass/Vol] 264 mg/dL <200 [facility] Comment on above: <200 mg/dL Desirable 200-240 mg/dL Borderline >240 mg/dL High Risk Eosinophils/100 WBC (Bld) 2.3 % 0-5 [facility] Glucose [Mass/Vol] 83 mg/dL 74-106 [facility] Hemoglobin (Bld) [Mass/Vol] 13.2 g/dL 12.0-15.0 [facility] Monocytes/100 WBC (Bld) 8.7 % 0-10 [facility] Neutrophils (Bld) [#/Vol] 3.8 10*3/uL 2.0-7.7 [facility] Neutrophils/100 WBC (Bld) 58.3 % 47-70 [facility] Potassium [Moles/Vol] 4.4 mmol/L 3.5-5.1 [facility] Protein [Mass/Vol] 7.2 g/dL 6.4-8.2 [facility] Sodium [Moles/Vol] 141 mmol/L 136-145 [facility] Triglyceride [Mass/Vol] 82 mg/dL <199 [facility] Comment on above: The drugs N-Acetylcy steine and Metamizole may falsely depress this assay.Serum Triglycerides Reference Interval Normal <150 mg/dL Borderline high 150 - 199 mg/dL High 200 - 499 mg/dL Very High > or = 500 mg/dL WBC (Bld) [#/Vol] 6.5 10*3/uL 4.4-11.0 [facility] Determination of erythrocyte mean corpuscular volume (MCV)Ordered By: Nitza Levy on 01-03-2024 MCV (RBC) [Entitic vol] 94.3 fL 81-99 [facility] Erythrocyte distribution wid th ratioOrdered By: [facility] on 01-03-2024 Erythrocyte distribution width (RBC) [Ratio] 13.4 % 11.6-14.6 [facility] Erythrocyte distribution wid th standard deviationOrdered By: [facility] on 01-03-2024 Erythrocyte distribution width (RBC) [Entitic vol] 46.7 fL 35.1-43.9 [facility] Hematocrit Auto (Bld) [Volum e fraction]Ordered By: Nitza Levy on 01-03-2024 Hematocrit (Bld) [Volume fraction] 41.0 % 37-47 [facility] Immature granulocytes/100 WB C Auto (Bld)Ordered By: [facility] on 01-03-2024 Immature granulocytes/100 WBC (Bld) 0.200 % 0.0-0.9 [facility] Comment on above: IG% - Immature Granu locytes (promyelocytes, myelocytes and metamyelocytes) > 1% indicates that a LEFT SHIFT is Present. Laboratory - Chemistry and C hemistry - challengeOrdered By: Nitza Levy on 01-03-2024 Albumin/Globulin [Mass ratio] 1.1 {ratio} 0.9-2.4 [facility] ALP [Catalytic activity/Vol] 78 U/L 45-117 [facility] ALT [Catalytic activity/Vol] 20 U/L 13-56 [facility] Cholesterol in HDL [Mass/Vol] 50 mg/dL >40 [facility] Comment on above: The drugs N-Acetylcy steine and Metamizole may falsely depress this assay. Reference Range HDL <40 mg/dL Low HDL Cholesterol HDL >or= 60 mg/dL High HDL Cholesterol Cholesterol in LDL [Mass/Vol] 198 mg/dL 0-130 [facility] CO2 [Moles/Vol] 29.0 mmol/L 21.0-32.0 [facility] Globulin (S) [Mass/Vol] 3.5 g/dL 2.2-4.2 [facility] Urea nitrogen/Creatinine [Mass ratio] 22.9 mg/mg 10-20 [facility] Laboratory - Hematology and Cell countsOrdered By: Nitza Levy on 01-03-2024 MCH (RBC) [Entitic mass] 30.3 pg 27.0-32.0 [facility] MCHC (RBC) [Mass/Vol] 32.2 g/dL 32-36 [facility] Nucleated RBC/100 WBC (Bld) [Ratio] 0 % 0-5 [facility] Platelet mean volume (Bld) [Entitic vol] 9.4 fL 6.2-12.0 [facility] Platelets (Bld) [#/Vol] 337 10*3/uL 150-450 [facility] No Panel InformationOrdered By: Nitza Levy on 01-03-2024 Estimated GFR (MDRD) Amer 82 mL/min >60 [facility] Comment on above: GFR Calc Estimated GFR (MDRD) Non-Af Amer 68 mL/min >60 [facility] Comment on above: Non- GFR Calc VLDL Cholesterol 16 mg/dL 5-40 [facility] RBC Auto (Bld) [#/Vol]Ordere d By: Nitza Levy on 01-03-2024 RBC (Bld) [#/Vol] 4.35 10*6/uL 4.2-5.4 [facility] Serum or plasma calcium dave urement (mass/volume)Ordered By: Nitza Levy on 01-03-2024 Calcium [Mass/Vol] 9.0 mg/dL 8.5-10.1 [facility] Serum or plasma creatinine m easurement (mass/volume)Ordered By: Nitza Levy on 01-03-2024 Creatinine [Mass/Vol] 0.92 mg/dL 0.55-1.02 [facility] Comment on above: The validity of the calculated GFR & GFRAA in patients over 70 years has not been determined. Clinical correlation is essential. Serum or plasma thyroid stim ulating hormone (TSH) measurement (units/volume)Ordered By: Nitzaashu Levy on 01-03-2024 TSH Qn 1.69 uIU/mL 0.358-3.74 [facility] Serum or plasma urea nitroge n measurement (mass/volume)Ordered By: Nitzaashu Levy on 01-03-2024 Urea nitrogen [Mass/Vol] 21 mg/dL 7-18 [facility] Thin prep Papanicolaou smear with manual screeningOrdered By: Nitza Cam on 01-03-2024 Thin prep Papanicolaou smear with manual screening 3.7 g/dL 3.2-5.0 [facility] Thin prep Papanicolaou smear with manual screening 17 U/L 15-37 [facility] Thin prep Papanicolaou smear with manual screening 4 5-15 [facility] Thin prep Papanicolaou smear with manual screening 1.26 ng/dL 0.76-1.46 [facility] ED NOTEon 05-08-2023 ED NOTE HNO ID: [id number] Author: Rachna Lujan, MELINA Service: Emergency Medicine Author Type: Registered Nurse Type: ED Notes Filed: 05/08/2023 4:57 PM Note Text: Pt given discharge instructions, pt questions answered and pt denies any further questions at time of discharge. Pt ambulates out of dept with a steady gait. Wound care info given Normal [facility] ED NOTE HNO ID: [id number] Author: Rachna Lujan, MELINA Service: Emergency Medicine Author Type: Registered Nurse Type: ED Notes Filed: 05/08/2023 4:57 PM Note Text: No active bleeding noted through dressing Normal [facility] ED NOTE HNO ID: [id number] Author: Rachna Lujan, MELINA Service: Emergency Medicine Author Type: Registered Nurse Type: ED Notes Filed: 05/08/2023 3:35 PM Note Text: Pt cut her r thumb on a mandolin Normal [facility] ED PROV NOTEon 05-08-2023 ED PROV NOTE HNO ID: [id number] Author: Rishabh Lilly MD Service: Emergency Medicine [...] KIM Licona JOSHUA M 05/08/[address] [facility] Laboratory - Miscellaneous t estson 09-18-2022 Service comment (Unsp spec) [Interp] Comment . [facility] Work Phone: Comment on above: Levels [...] 09-18 Scallop Allergen <0.10 kU/L Class 0 [facility] Work Phone: Sesame Seed Allergen IgE Antibody <0.10 kU/L Class 0 [facility] Work Phone: Shrimp Allergen <0.10 kU/L Class 0 [facility] Work Phone: Serum banana IgE antibody as say (units/volume)on 09-18-2022 Banana IgE Qn (S) 0.11 kU/L Class 0/I [facility] Work Phone: Comment on above: Performed at: [address] [id number] Director: Jamila Corona MD, Phone: [phone] Serum beef IgE antibody assa y (units/volume)on 09-18-2022 Beef IgE Qn (S) <0.10 kU/L Class 0 [facility] Work Phone: Serum black walnut IgE antib daniella assay (units/volume)on 09-18-2022 Black [place] IgE Qn (S) <0.10 kU/L Class 0 [facility] Work Phone: Serum chicken IgE antibody a ssay (units/volume)on 09-18-2022 Chicken IgE Qn (S) <0.10 kU/L Class 0 [facility] Work Phone: Serum clam IgE antibody assa y (units/volume)on 09-18-2022 Clam IgE Qn (S) <0.10 kU/L Class 0 [facility] Work Phone: Serum codfish IgE antibody a ssay (units/volume)on 09-18-2022 Codfish IgE Qn (S) <0.10 kU/L Class 0 [facility] Work Phone: Serum corn IgE antibody assa y (units/volume)on 09-18-2022 Fruitland IgE Qn (S) 0.12 kU/L Class 0/I [facility] Work Phone: Serum cow milk IgE antibody assay (units/volume)on 09-18-2022 Cow milk IgE Qn (S) <0.10 kU/L Class 0 [facility] Work Phone: Serum egg white IgE antibody assay (units/volume)on 09-18-2022 Egg white IgE Qn (S) 0.71 kU/L Class II [facility] Work Phone: Serum egg yolk IgE antibody assay (units/volume)on 09-18-2022 Egg yolk IgE Qn (S) 0.26 kU/L Class 0/I [facility] Work Phone: Serum gluten IgE antibody as say (units/volume)on 09-18-2022 Gluten IgE Qn (S) <0.10 kU/L Class 0 [facility] Work Phone: Serum peanut IgE antibody as say (units/volume)on 09-18-2022 Peanut IgE Qn (S) <0.10 kU/L Class 0 [facility] Work Phone: Serum soybean IgE antibody a ssay (units/volume)on 09-18-2022 Soybean IgE Qn (S) <0.10 kU/L Class 0 [facility] Work Phone: Serum wheat IgE antibody ass ay (units/volume)on 09-18-2022 Wheat IgE Qn (S) 0.12 kU/L Class 0/I [facility] Work Phone: Absolute lymphocyte counton 08-31-2022 Lymphocytes Auto (Unsp spec) [#/Vol] 1.68 10*3/uL 0.83-4.51 [facility] Work Phone: Basophil percentageon 2021 Basophils/100 WBC (Bld) 0.5 % 0-1 [facility] Work Phone: Bilirubin [Mass/Vol] 0.50 mg/dL 0.20-1.00 [facility] Work Phone: Comment on above: For patients on eltr ombopag therapy, use of Dimension [place] TBIL is not recommended. Chloride [Moles/Vol] 105 mmol/L 98-107 [facility] Work Phone: Cholesterol [Mass/Vol] 234 mg/dL <200 [facility] Work Phone: Comment on above: <200 mg/dL Desirable 200-240 mg/dL Borderline >240 mg/dL High Risk Eosinophils/100 WBC (Bld) 2.7 % 0-5 [facility] Work Phone: Glucose [Mass/Vol] 84 mg/dL 74-106 [facility] Work Phone: Neutrophils (Bld) [#/Vol] 3.5 10*3/uL 2.0-7.7 [facility] Work Phone: Neutrophils/100 WBC (Bld) 58.2 % 47-70 [facility] Work Phone: Potassium [Moles/Vol] 4.3 mmol/L 3.5-5.1 [facility] Work Phone: Protein [Mass/Vol] 7.3 g/dL 6.4-8.2 [facility] Work Phone: Sodium [Moles/Vol] 140 mmol/L 136-145 [facility] Work Phone: Triglyceride [Mass/Vol] 92 mg/dL <199 [facility] Work Phone: Comment on above: The drugs N-Acetylcy steine and Metamizole may falsely depress this assay.Serum Triglycerides Reference Interval Normal <150 mg/dL Borderline high 150 - 199 mg/dL High 200 - 499 mg/dL Very High > or = 500 mg/dL WBC (Bld) [#/Vol] 5.9 10*3/uL 4.4-11.0 [facility] Work Phone: Blood erythrocytes count (nu mber/volume)on 08-31-2022 RBC (Bld) [#/Vol] 4.25 10*6/uL 4.2-5.4 [facility] Work Phone: Blood hemoglobin measurement (mass/volume)on 08-31-2022 Hemoglobin (Bld) [Mass/Vol] 13.2 g/dL 12.0-15.0 [facility] Work Phone: Blood lymphocytes/100 leukoc yteson 08-31-2022 Lymphocytes/100 WBC (Bld) 28.4 % 19-41 [facility] Work Phone: Blood monocytes/100 leukocyt eson 08-31-2022 Monocytes/100 WBC (Bld) 10.0 % 0-10 [facility] Work Phone: Blood platelet mean volumeon 08-31-2022 Platelet mean volume (Bld) [Entitic vol] 9.6 fL 6.2-12.0 [facility] Work Phone: Determination of erythrocyte mean corpuscular volume (MCV)on 08-31-2022 MCV (RBC) [Entitic vol] 94.1 fL 81-99 [facility] Work Phone: Hematocrit Auto (Bld) [Volum e fraction]on 08-31-2022 Hematocrit (Bld) [Volume fraction] 40.0 % 37-47 [facility] Work Phone: Laboratory - Chemistry and C hemistry - challengeon 08-31-2022 ALP [Catalytic activity/Vol] 81 U/L 45-117 [facility] Work Phone: ALT [Catalytic activity/Vol] 31 U/L 13-56 [facility] Work Phone: CO2 [Moles/Vol] 29.0 mmol/L 21.0-32.0 [facility] Work Phone: Free T4 [Mass/Vol] 1.63 ng/dL 0.76-1.46 [facility] Work Phone: Globulin (S) [Mass/Vol] 3.8 g/dL 2.2-4.2 [facility] Work Phone: Urea nitrogen/Creatinine [Mass ratio] 14.4 mg/mg 10-20 [facility] Work Phone: Laboratory - Hematology and Cell countson 08-31-2022 Erythrocyte distribution width (RBC) [Entitic vol] 46.5 fL 35.1-43.9 [facility] Work Phone: Erythrocyte distribution width (RBC) [Ratio] 13.5 % 11.6-14.6 [facility] Work Phone: Immature granulocytes/100 WBC (Bld) 0.200 % 0.0-0.9 [facility] Work Phone: Comment on above: IG% - Immature Granu locytes (promyelocytes, myelocytes and metamyelocytes) > 1% indicates that a LEFT SHIFT is Present. MCH (RBC) [Entitic mass] 31.1 pg 27.0-32.0 [facility] Work Phone: Nucleated RBC/100 WBC (Bld) [Ratio] 0 % 0-5 [facility] Work Phone: MCHC Auto (RBC) [Mass/Vol]on 08-31-2022 MCHC (RBC) [Mass/Vol] 33.0 g/dL 32-36 [facility] Work Phone: No Panel Informationon 08-31 Estimated GFR (MDRD) Amer 77 mL/min >60 [facility] Work Phone: Comment on above: GFR Calc Estimated GFR (MDRD) Non-Af Amer 64 mL/min >60 [facility] Work Phone: Comment on above: Non- GFR Calc Thyroid Stimulating Hormone (TSH) 1.50 uIU/mL 0.358-3.74 [facility] Work Phone: Platelets bldon 08-31-2022 Platelets (Bld) [#/Vol] 389 10*3/uL 150-450 [facility] Work Phone: Serum or plasma albumin dave urement (mass/volume)on 08-31-2022 Albumin [Mass/Vol] 3.5 g/dL 3.2-5.0 [facility] Work Phone: Serum or plasma albumin/glob ulin mass ratioon 08-31-2022 Albumin/Globulin [Mass ratio] 0.9 {ratio} 0.9-2.4 [facility] Work Phone: Serum or plasma calcium dave urement (mass/volume)on 08-31-2022 Calcium [Mass/Vol] 8.7 mg/dL 8.5-10.1 [facility] Work Phone: Serum or plasma cholesterol in HDL measurement (mass/volume)on 08-31-2022 Cholesterol in HDL [Mass/Vol] 42 mg/dL >40 [facility] Work Phone: Comment on above: The drugs N-Acetylcy steine and Metamizole may falsely depress this assay. Reference Range HDL <40 mg/dL Low HDL Cholesterol HDL >or= 60 mg/dL High HDL Cholesterol Serum or plasma cholesterol in VLDL measurement (mass/volume)on 08-31-2022 Cholesterol in VLDL [Mass/Vol] 18 mg/dL 5-40 [facility] Work Phone: Serum or plasma creatinine m easurement (mass/volume)on 08-31-2022 Creatinine [Mass/Vol] 0.97 mg/dL 0.55-1.02 [facility] Work Phone: Comment on above: The validity of the calculated GFR & GFRAA in patients over 70 years has not been determined. Clinical correlation is essential. Serum or plasma low density lipoprotein (LDL) cholesterol measurement (mass/volume)on 08-31-2022 Cholesterol in LDL [Mass/Vol] 174 mg/dL 0-130 [facility] Work Phone: Serum or plasma urea nitroge n measurement (mass/volume)on 08-31-2022 Urea nitrogen [Mass/Vol] 14 mg/dL 7-18 [facility] Work Phone: Thin prep Papanicolaou smear with manual screeningon 08-31-2022 Thin prep Papanicolaou smear with manual screening 18 U/L 15-37 [facility] Work Phone: Thin prep Papanicolaou smear with manual screening 6 5-15 [facility] Work Phone: Cervical or vagninal specime n microscopic examination by cytology stain (reported ason 02-03-2022 Cytology report Cyto stain Doc (Cvx/Vag) Comment [facility] Work Phone: Comment on above: The [...] DNA Probe+sig amp Ql (Cvx) Negative Negative [facility] Work Phone: Comment on above: This nucleic acid am plification test detects fourteen high- risk HPV types (16,18,31,33,35,39,45,51,52,56,58,59,66,68)without differentiation.Performed at: - [address] [id number] Director: Anabelle Live MD, Phone: [phone] at: =G - [facility] [address] [id number] Director: Anabelle Live MD, Phone: [phone] Laboratory - Cytologyon 01-10 Coiled Tubing Supervisor Cyto stain Nom (Cvx/Vag) [ID] Comment [facility] Work Phone: Comment on above: Mireya Woodward, Cytot echnologist (ASCP) Laboratory - Miscellaneous t estson 02-03-2022 Service comment (Unsp spec) [Interp] Comment [facility] Work Phone: Comment on above: This liquid based Th inPrep(R) pap test was screened withthe use of an image guided system. Service comment (Unsp spec) [Interp] . [facility] Work Phone: No Panel Informationon 02-03 Pathology report final diagnosis Narrative Comment [facility] Work Phone: Comment on above: NEGATIVE FOR INTRAEP ITHELIAL LESION OR MALIGNANCY. DHEASon 01-19-2018 DHEA-SO4 221 mcg/dL Normal 35-430 [facility] ([place]) Comment on above: Performed By: #### F T4, FT3, TSH ####[place] [address]#### TESTO, PROG, E2, MCRSO, DHEAS ####[place] [address] E2on 01-14-2018 Estradiol Level 44 pg/mL Normal [facility] ([place]) Comment on above: Result Comment: Adul t Female E2 Reference Ranges (10/16/11): Follicular phase 21 - 165 pg/mL Midcycle 50 - 367 pg/mL Luteal phase 40 - 259 pg/mL Post menopausal 11 - 58 pg/mL Performed By: #### F T4, FT3, TSH ####[place] [address]#### TESTO, PROG, E2, MCRSO, DHEAS ####[place] [address] FT3on 01-14-2018 Triiodothyronine (T3) free 2.4 pg/mL Normal 2.3-4.0 [facility] ([place]) Comment on above: Performed By: #### F T4, FT3, TSH ####[place] [id number]#### TESTO, PROG, E2, MCRSO, DHEAS ####[place] [address] FT4on 01-14-2018 Thyroxine (T4) free 1.2 ng/mL Normal 0.6-1.7 [facility] ([place]) Comment on above: Performed By: #### F T4, FT3, TSH ####[place] [address]#### TESTO, PROG, E2, MCRSO, DHEAS ####[place] [address] PROGon 01-14-2018 Progesterone Level 7.0 ng/mL [facility] [place] Comment on above: Result Comment: Adul t Female Progesterone Reference Ranges (09/11/99): Follicular phase 0.2 - 1.4 ng/mL Luteal phase 3.3 - 25.6 ng/mL Mid-Luteal phase 4.4 - 28.0 ng/mL Postmenopausal 0.2 - 0.7 ng/mlAdult Male: 0.3 - 1.2 ng/mL Performed By: #### F T4, FT3, TSH ####[place] [address]#### TESTO, PROG, E2, MCRSO, DHEAS ####[place] [address] TESTOon 01-14-2018 Testosterone Lvl 49.4 ng/dL Normal 14.0-76.0 [facility] ([place]) Comment on above: Performed By: #### F T4, FT3, TSH ####[place] [address]#### TESTO, PROG, E2, MCRSO, DHEAS ####[place] [address] TSHon 01-14-2018 Thyroid stimulating hormone (TSH) 2.39 mcIU/mL Normal 0.27-4.20 [facility] ([place]) Comment on above: Performed By: #### F T4, FT3, TSH ####[place] [address]#### TESTO, PROG, E2, MCRSO, DHEAS ####[place] [address] DHEASon 09-22-2017 DHEA-SO4 95 mcg/dL Normal 35-430 [facility] ([place]) Comment on above: Performed By: #### F T4, FT3, TSH ####[place] [address]#### TESTO, PROG, E2, MCRSO, DHEAS ####[place] [address] E2on 09-20-2017 Estradiol Level 50 pg/mL Normal [facility] ([place]) Comment on above: Result Comment: Adul t Female E2 Reference Ranges (10/16/11): Follicular phase 21 - 165 pg/mL Midcycle 50 - 367 pg/mL Luteal phase 40 - 259 pg/mL Post menopausal 11 - 58 pg/mL Performed By: #### F T4, FT3, TSH ####[place] [place] [place] [address]#### TESTO, PROG, E2, MCRSO, DHEAS ####[place] [address] FT3on 09-20-2017 Triiodothyronine (T3) free 2.4 pg/mL Normal 2.3-4.0 [facility] ([place]) Comment on above: Performed By: #### F T4, FT3, TSH ####[place] [address]#### TESTO, PROG, E2, MCRSO, DHEAS ####[place] [address] FT4on 09-20-2017 Thyroxine (T4) free 1.1 ng/mL Normal 0.6-1.7 [facility] ([place]) Comment on above: Performed By: #### T SH, FT4, FT3 ####[place] [address]#### TESTO, PROG, E2, DHEAS ####[place] [address] PROGon 09-20-2017 Progesterone Level 8.9 ng/mL [facility] ([place]) Comment on above: Result Comment: Adul t Female Progesterone Reference Ranges (09/11/99): Follicular phase 0.2 - 1.4 ng/mL Luteal phase 3.3 - 25.6 ng/mL Mid-Luteal phase 4.4 - 28.0 ng/mL Postmenopausal 0.2 - 0.7 ng/mlAdult Male: 0.3 - 1.2 ng/mL Performed By: #### F T4, FT3, TSH ####[place] [place] [address]#### TESTO, PROG, E2, MCRSO, DHEAS ####[address] [address] TESTOon 09-20-2017 Testosterone Lvl 59.3 ng/dL Normal 14.0-76.0 [facility] ([place]) Comment on above: Performed By: #### F T4, FT3, TSH ####[place] [address]#### TESTO, PROG, E2, MCRSO, DHEAS ####[place] [address] TSHon 09-20-2017 Thyroid stimulating hormone (TSH) 2.90 mcIU/mL Normal 0.27-4.20 [facility] ([place]) Comment on above: Performed By: #### T SH, FT4, FT3 ####[place] [address]#### TESTO, PROG, E2, DHEAS ####[place] [address] DHEASon 06-23-2017 DHEA-SO4 48 mcg/dL Normal 35-430 [facility] ([place]) Comment on above: Result Comment: Spec imen slightly hemolyzed Performed By: #### F T4, FT3, TSH ####[place] [address]#### TESTO, PROG, E2, MCRSO, DHEAS ####[place] [address] [id number] 06-22-2017 Microsomal Ab <10 Normal 0-35 [facility] ([place]) Comment on above: Result Comment: This result represents Anti-TPO antibodies which aresynonymous with microsomal antibodies. Performed By: #### F T4, FT3, TSH ####[place] [address]#### TESTO, PROG, E2, MCRSO, DHEAS ####[place] [address] E2on 2017 Estradiol Level 38 pg/mL Normal [facility] ([place]) Comment on above: Result Comment: Adul t Female E2 Reference Ranges (10/16/11): Follicular phase 21 - 165 pg/mL Midcycle 50 - 367 pg/mL Luteal phase 40 - 259 pg/mL Post menopausal 11 - 58 pg/mL Performed By: #### F T4, FT3, TSH ####[place] [address] [place] [address]#### TESTO, PROG, E2, MCRSO, DHEAS ####[place] [address] FT3on 2017 Triiodothyronine (T3) free 2.4 pg/mL Normal 2.3-4.0 [facility] ([place]) Comment on above: Performed By: #### F T4, FT3, TSH ####[place] [address]#### TESTO, PROG, E2, MCRSO, DHEAS ####[place] [address] FT4on 2017 Thyroxine (T4) free 1.2 ng/mL Normal 0.6-1.7 [facility] ([place]) Comment on above: Performed By: #### F T4, FT3, TSH ####[place] [address]#### TESTO, PROG, E2, MCRSO, DHEAS ####[place] [address] PROGon 2017 Progesterone Level 12.2 ng/mL [facility] [place] Comment on above: Result Comment: Adul t Female Progesterone Reference Ranges (09/11/99): Follicular phase 0.2 - 1.4 ng/mL Luteal phase 3.3 - 25.6 ng/mL Mid-Luteal phase 4.4 - 28.0 ng/mL Postmenopausal 0.2 - 0.7 ng/mlAdult Male: 0.3 - 1.2 ng/mL Performed By: #### F T4, FT3, TSH ####[place] [address]#### TESTO, PROG, E2, MCRSO, DHEAS ####[address] [address] TESTOon 2017 Testosterone Lvl 42.0 ng/dL Normal 14.0-76.0 [facility] ([place]) Comment on above: Performed By: #### F T4, FT3, TSH ####[place] [address] [place], [place] [address]#### TESTO, PROG, E2, MCRSO, DHEAS ####[place] [address] TSHon 2017 Thyroid stimulating hormone (TSH) 4.50 mcIU/mL High 0.27-4.20 [facility] ([place]) Comment on above: Result Comment: Abov e normal(expected)range Performed By: #### F T4, FT3, TSH ####[place] [address] [place], [place] [address]#### TESTO, PROG, E2, MCRSO, DHEAS ####[place] [id number] Vital Signs Date Time Vital Sign Value Performing Clinician Faci lity 12-30-2023 09:33-0400 Body temperature 97.1 [degF] Dr. Nitza Levy Work Phone: [facility] 12-30-2023 09:33-0400 Diastolic blood pressure 59 mm[Hg] Dr. Nitza Levy Work Phone: [facility] 12-30-2023 09:33-0400 Heart rate 58 /min Dr. Nitza Levy Work Phone: [facility] 12-30-2023 09:33-0400 Respiratory rate 16 /min Dr. Nitza Levy Work Phone: [facility] 12-30-2023 09:33-0400 SaO2% (BldA) [Mass fraction] 99 % Dr. Nitza Levy Work Phone: [facility] 12-30-2023 09:33-0400 Systolic blood pressure 95 mm[Hg] Dr. Nitza Levy Work Phone: [facility] 12-30-2023 07:47-0400 Body height 167.[address] Nitza Levy Work Phone: [facility] 12-30-2023 07:47-0400 Body mass index (BMI) [Ratio] 23.8 kg/m2 Dr. Nitza Levy Work Phone: [facility] 12-30-2023 07:47-0400 Body weight 67.[address] Nitza Levy Work Phone: [facility] 12-08-2023 10:58-0500 Body height 167.[address] Nitza Levy Work Phone: [facility] 12-08-2023 10:58-0500 Body mass index (BMI) [Ratio] 23.3 kg/m2 Dr. Nitza Levy Work Phone: [facility] 12-08-2023 10:58-0500 Body weight 65.[address] Nitza Levy Work Phone: [facility] Encounters Encounter Date Encounter Type Care Provider Facility Start: 06-04-2025 End: 06-04-2025 Subsequent hospital visit by physician Adán Cabello MD Work Phone: [facility] Radiology Comment on above: Dyspnea, unspecified Start: 06-04-2025 End: 06-04-2025 ambulatory ADÁN CABELLO [facility] Start: 01-25-2025 Encounter for gynecological examination (general) (routine) without abnormal findings Mitra Guan [facility] Start: 01-25-2025 End: 01-25-2025 ambulatory Nitza Levy Facility:[facility] Start: 12-12-2024 End: 12-12-[address] Nitza Levy MD Work Phone: [facility] Work Phone: Start: 12-12-2024 End: 12-12-2024 Patient encounter procedure Mitra Guan [facility] -Out[facility] Breast [facility] Work Phone: Start: 12-12-2024 End: 12-12-2024 ambulatory Mitra Guan Facility:[facility] Start: 02-07-[address] Nitza Levy MD Work Phone: [facility] Start: 01-03-2024 End: 01-03-[address] Nitza Levy Work Phone: [facility] Work Phone: Start: 01-03-2024 End: 01-03-[address] Nitza Levy Work Phone: [facility] Work Phone: Start: 12-30-2023 Non-patient / Non-visit Dr. Pancho Levy Work Phone: [facility] Start: 12-30-2023 End: 12-30-2023 Admission to same day surgery center Dr. Nitza Levy Work Phone: [facility] Work Phone: Start: 12-30-2023 End: 12-30-[address] Nitza Levy Work Phone: [facility] Work Phone: Start: 12-08-2023 Non-patient / Non-visit Dr. Pancho Levy Work Phone: [facility] Work Phone: Start: 12-08-2023 End: 12-08-[address] Nitza Levy Work Phone: [facility] Work Phone: Start: 12-08-2023 End: 12-08-[address] Nitza Levy Work Phone: [facility] Work Phone: Start: 05-08-2023 End: 05-08-2023 Emergency department patient visit NITZA LEVY Facility:[facility] Start: 09-18-2022 End: 09-18-[address] [facility] Work Phone: Start: 09-18-2022 End: 09-18-[address] [facility] Start: 08-31-2022 End: 08-31-[address] [facility] Start: 02-16-2022 End: 02-16-[address] [facility] Start: 02-03-2022 End: 02-03-[address] [facility] Start: 01-14-2018 End: 01-15-2018 Ambulatory FAVIOLA KNUTSON Facility:[facility] Start: 09-20-2017 End: 09-21-2017 Ambulatory FAVIOLA KNUTSON Facility:[facility] Start: 2017 End: 06-17-2017 Ambulatory FAVIOLA KNUTSON Facility:[facility] Procedures Date Procedure Procedure Detail Performing Clinician [...] for Adults (1 - 1-dose 75+ series) [facility] Start: 05-08-2033 DTaP/Tdap/Td Vaccines (2 - Td or Tdap) DTaP/Tdap/Td Vaccines (2 - Td or Tdap) [facility] Start: 06-11-2025 Influenza vaccination Influenza Vaccine (#1) [facility] Start: 06-11-2024 COVID-19 Vaccine ( season) COVID-19 Vaccine () [facility] Start: 12-30-2023 Colonoscopy flx dx w/collj spec when pfrmd DIAGNOSTIC COLONOSCOPY [facility] Start: 12-30-[address] [facility] Start: 2019 Zoster Vaccines (1 of 2) Zoster Vaccines (1 of 2) [facility] Start: 10-09-2013 Screening for malignant neoplasm of cervix [facility] Start: 2009 Screening for malignant neoplasm of breast Mammogram [facility] Start: 1999 Screening for malignant neoplasm of cervix HPV/Cotest [facility] Start: 1988 Hepatitis B Vaccines (1 of 3 - 19+ 3-dose series) Hepatitis B Vaccines (1 of 3 - 19+ 3-dose series) [facility] Start: 1988 Pneumococcal Vaccine: 50+ Years (1 of 2 - PCV) Pneumococcal Vaccine: 50+ Years (1 of 2 - PCV) [facility] Start: 1987 Hepatitis C screening Hepatitis C Screening [facility] Start: 1981 Depression Monitoring Depression Monitoring [facility] Start: 1970 MMR Vaccines (1 of 1 - Standard series) MMR Vaccines (1 of 1 - Standard series) [facility] Start: 1969 HIV screening HIV Screening [facility] Start: 1969 Screening for malignant neoplasm of colon [facility] Colonoscopy [facility] Patient referral [facility] Work Phone: Payers Date Payer Category Payer Self-pay [id number] 2020 [employer] - [place] KIRSTIE LARA [id number] 2020 Unknown [id number] 2014 Private Health Insurance [id number] Private Health Insurance [facility] [id number] Unknown [id number] Unknown [id number] Social History Date Type Detail Facility Start: 06-27-2018 End: 12-29-2023 Tobacco smoking status NHIS Unknown if ever smoked [facility] Start: 1970 Sex Assigned At Female [facility] Start: 01-20-2024 Tobacco smoking status NHIS Never smoked tobacco (finding) [facility] Start: 05-11-2022 End: 12-22-2024 Sex Female (finding) [facility] Start: 1970 Sex assigned at Not on file [facility] Gender identity Not on file [facility] NEGATED: Highlighted row [facility] Goals Date Patient Goal Desired Activity /State Mental Status Date Assessment Result Facility 12-30-2023 Cognitive function Voice/Name [facility] Work Phone: Procedure note 12-30-2023 Note Date & Type Note Facility 12-30-2023 Procedure note [facility] Procedure note 12-30-2023 Note Date & Type Note Facility 12-30-2023 Procedure note [facility] Clinical Note 02-03-2022 Note Date & Type Note Facility 02-03-[address] [facility] Work Phone: Pap Smear Specimen Adequacy February 03, 2022 4:00pm Comment Satisfactory for evaluation. Endocervical and/or squamous metaplasticcells (endocervical component) are present. Comment on above: Satisfactory for cheryle luation. Endocervical and/or squamous metaplasticcells (endocervical component) are present. Clinical Note 02-03-2022 Note Date & Type Note Facility 02-03-[address] [facility] Work Phone: Pap Smear Specimen Adequacy February 03, 2022 4:00pm Comment Satisfactory for evaluation. Endocervical and/or squamous metaplasticcells (endocervical component) are present. Comment on above: Satisfactory for cheryle luation. Endocervical and/or squamous metaplasticcells (endocervical component) are present. Evaluation note Note Date & Type Note Facility Evaluation note No assessment information availa ble [facility] Work Phone: Evaluation note Note Date & Type Note Facility Evaluation note Diagnosis Onset Date Encounter for screening for malignant neoplasm of colon acute [facility] Work Phone: Evaluation note Note Date & Type Note Facility Evaluation note Diagnosis Dyspnea, unspecified documented in this encounter [facility] History and physical note Note Date & Type Note Facility History and physical note Note Date/Time December 30, 2023 9:01am [facility] Medical Records Department [address] [place] [address] History & Physical Exam 12/30/23 0859 MR#: [id number] Acct: [id number] Name: CLARITA DAS Rep #:[id number] : 1970 53 From: Jose D Friend DO PCP: Dr. Nitza Levy MD Status:[facility] Location: [place] [address] HPI - General General Date of Admission: [...] Overall she is in very good health. [facility] Medical History Alcohol use Asthma Depression GERD [...] Levy MD; Jose D Mackey DO~ Signed [facility] Work Phone: Reason for referral (narrative) Note Date & Type Note Facility Reason for referral (narrative) No reason for referral information available [facility] Work Phone: Summary Purpose Family History Relationship Condition Age at Onset Recorded Date/T abbie father Hypertension Unknown Asthma Unknown mother Malignant neoplasm of breast Unknown Relationship Condition Age at Onset Recorded Date/T abbie mother Malignant neoplasm of breast Unknown Hypertension Unknown Advance Directives Advance Directive Response Recorded Date/ Time Living Will No December 29, 2023 8:48am Power of Sas Administrator No December 28 8:48am Chief Complaint and Reason for Visit Chief Complaint SCREENING Chief Complaint GERD Chief Complaint SCREEN Amb Documentation Chief Complaint SCREEN Amb Documentation Reason for Visit Encounter for screen ing for malignant neoplasm of colon Chief Complaint Admit Date SCREENING December 12, 2024 7:07 am Additional Source Comments INFORMATION SOURCE (unrecogn ized section and content) DATE CREATED AUTHOR 03/31/2018 [facility] ([place]) DATE CREATED AUTHOR AUTHOR'S ORGANIZ ATION 05/08/2023 [facility] DATE CREATED AUTHOR AUTHOR'S ORGANIZ ATION 01/27/2025 [facility] DATE CREATED AUTHOR AUTHOR'S ORGANIZ ATION 06/05/2025 [facility] Goals (unrecognized section [...] Nitza Levy MD Primary Care Provider Active [facility] Attending Provider Active Team Status: Inactive Member [...] Primary Care Provider, Attendin g Provider Active Registered Nurse Post Partum Relationship Specialty Start Date End Date Nitza Levy MD [address] [facility] [place] [id number] PCP - General Family Medicine 06/04/25 FOR [...] BE BASED ON THE PRIMARY CLINICAL RECORDS. [employer] provides no warranty or guarantee of the accuracy or completeness of information in this document.
== END | disposition home or self-care (01) ==
LOC: CT 07:22
PROVIDERS: PCP Family Medicine; Referring Provider Family Medicine; Visit Provider Family Medicine
DX: E78.00 Pure hypercholesterolemia, unspecified (principal)
CPT/HCPCS: 75571; 76380